=== PATIENT | male | born 1995 | race Caucasian/White ===

== ENCOUNTER → 2017-04-21 | Day surgery (SDC) | payer OTHER ==
[~2017-04-21] VITALS: Ht 188 cm; Wt 93.9 kg
[~2017-04-21] MED LIST: CEPH-459 PO; CHLO200T5 PO; CHLORHEXIDINE GLUCONATE 2 % 1 PACK (2 CLOTHS) TOPICAL PRN; CLIN1CAP6 PO; CLON2TAB PO; DAKI0.12 TOPICAL; FENO48TA PO; INSULIN HUMAN REGULAR 1,000 UNITS/10 ML VIAL SQ PRN; INTU4TAB PO; LACTATED RINGER'S 1000 ML IV PRN; LEVEMIR SQ; METOPROLOL TARTRATE 25 MG TAB PO PRN; NYST10007 TOPICAL; PERC5TAB12 PO; POVIDONE IODINE 5% (ANTISEPSIS KIT) 4 APPLICATIONS EACH NARE PRN; PROP40TA3 PO; SAPH10SU3 SL; SODIUM CHLORID 0.9% 500 ML IV PRN; SODIUM CHLORIDE 0.9% INJ 100 ML ONE; ceFAZolin 1,000 MG/NS 100 ML IV SCH; ceFAZolin INJ 1,000 MG VIAL ONE
[2017-04-21 10:41] LABS: AUTOMATED NEUTROPHIL # 3.4 TH/MM3 (1.8-7.7); BASOPHIL % 0.4 % (0.0-2.0); HEMATOCRIT 41.2 % (39.0-51.0); HEMO FLAGS DIFF FINAL; LYMPHOCYTE # 1.5 TH/MM3 (1.0-4.8); MEAN CELL VOLUME 79.3 FL (80.0-100.0); MEAN CORPUSCULAR HEMOGLOBIN 27.7 PG (27.0-34.0); MEAN CORPUSCULAR HGB CONC 34.9 % (32.0-36.0); MONO % 6.7 % (0.0-8.0); NEUT % 63.9 % (16.0-70.0); PLATELET COUNT 253 TH/MM3 (150-450); RED BLOOD COUNT 5.19 MIL/MM3 (4.50-5.90); RED CELL DISTRIBUTION WIDTH 14.6 % (11.6-17.2); WHITE BLOOD COUNT 5.3 TH/MM3 (4.0-11.0)
[2017-04-21 14:05] VITALS: BP 156/90; PULSE 89; RESP 20; TEMP 98.1; O2SAT 98
== END | disposition home or self-care (01) ==
LOC: HSDC 09:08
PROVIDERS: ATTEND Urology
DX: R30.0 Dysuria (principal); Z53.9 Procedure and treatment not carried out, unspecified reason
CPT/HCPCS: 85025; 99211; J0690; J7120; G0463

== ENCOUNTER 2017-05-19 15:04 | Inpatient (IN) | payer OTHER ==
[~2017-05-19] VITALS: Ht 188 cm; Wt 98.1 kg
[~2017-05-19 15:04] MED LIST changes: -CEPH-459 PO; -CHLORHEXIDINE GLUCONATE 2 % 1 PACK (2 CLOTHS) TOPICAL PRN; -CLIN1CAP6 PO; -DAKI0.12 TOPICAL; -FENO48TA PO; -INSULIN HUMAN REGULAR 1,000 UNITS/10 ML VIAL SQ PRN; -LACTATED RINGER'S 1000 ML IV PRN; -METOPROLOL TARTRATE 25 MG TAB PO PRN; -NYST10007 TOPICAL; -PERC5TAB12 PO; -POVIDONE IODINE 5% (ANTISEPSIS KIT) 4 APPLICATIONS EACH NARE PRN; -SODIUM CHLORID 0.9% 500 ML IV PRN; -SODIUM CHLORIDE 0.9% INJ 100 ML ONE; -ceFAZolin 1,000 MG/NS 100 ML IV SCH; -ceFAZolin INJ 1,000 MG VIAL ONE
[2017-05-19 15:11] VITALS: BP 106/77; PULSE 86; RESP 13; TEMP 98.3; O2SAT 100
[2017-05-19] MEDS ORDERED: SODIUM CHLOR 0.9% 1000 ML INJ 1,000 ML IV SCH ×2 (15:42)
[2017-05-19] MEDS ORDERED: LORazepam 2 MG/ML VIAL IV PUSH ONE (15:45)
[2017-05-19] MEDS ORDERED: LIDOCAINE HCL 1% 50 ML VIAL INFIL ONE (15:45)
[2017-05-19] MEDS ORDERED: VANCOMYCIN INJ 1,000 MG in SODIUM CHLOR 0.9% 250 ML INJ 250 ML IV ONE (15:45)
[2017-05-19] MEDS ORDERED: MORPHINE SULFATE 4 MG/ML INJ IV PUSH ONE (15:45)
--- NOTE | 2017-05-19 15:49 | PD ---
HPI Chief Complaint: Skin Problem Time Seen by Provider: 15:35 Travel History International Travel<30 days: No Contact w/Intl Traveler<30days: No Traveled to known affect area: No History of Present Illness HPI This is a 21-year-old male with history of autism, diabetes, presents with parents for evaluation of right arm infection. The mother reports that she noticed a small bump just distal to his right elbow about one week ago. Since yesterday he has had significant progression of erythema and soft tissue swelling to the right forearm which is painful. Initially they went to an urgent care center with [facility] for further evaluation. He has had no fevers at home. He has had no change in mentation or diet. His primary care physician is Dr. Jose Bautista. No other complaints at this time. [facility] Past Medical History ADHD: Yes Cancer: No Cardiovascular Problems: No Developmental Delay: Yes Diabetes: Yes (INSULIN DEPENDANT) Diminished Hearing: No Endocrine: Yes Genitourinary: No Hepatitis: No Musculoskeletal: No Neurologic: Yes (AUTISTIC AND NON-VERBAL) Psychiatric: No Reproductive: No Respiratory: No Immunizations Current: Yes Past Surgical History Pacemaker: No Social History Alcohol Use: No Tobacco Use: No Substance Use: No Allergies-Medications (Allergen,Severity, Reaction): Coded Allergies: No Known Drug Allergies (Verified Allergy, Unknown, 05/19/17) *MDRO Multi-Drug Resistant Organism (Verified Adverse Reaction, Unknown, ) 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) Reported Meds & Prescriptions Reported Meds & Active Scripts Active Chlorpromazine (Chlorpromazine HCl) 200 Mg Tab 200 Mg PO 2 TID Propranolol (Propranolol HCl) 40 Mg Tab 40 Mg PO BID Intuniv (Guanfacine ER) 4 Mg Claude 4 Mg PO BID Saphris (Asenapine) 10 Mg Subl 10 Mg SL BID Clonazepam 2 Mg Tab 2 Mg PO BID Reported Levemir Inj (Insulin Detemir) 1,000 unit/ 10 ML Vial 6 Units SQ DAILY Do not mix with any other Insulin. Review of Systems ROS Limitations: Poor Historian Except as stated in HPI: all other systems reviewed are Neg Physical Exam Exam Limitations: Poor Historian Narrative GENERAL: Well-developed well-nourished male who is in no acute distress. SKIN: Warm and dry. There is a large area of induration and erythema to the right forearm. There is a 2 cm fluctuant abscess just distal to the right elbow. Tender to palpation. No axillary lymphadenopathy. HEAD: Atraumatic. Normocephalic. EYES: Pupils equal and round. No scleral icterus. No injection or drainage. ENT: No nasal bleeding or discharge. Mucous membranes pink and moist. NECK: Trachea midline. No JVD. CARDIOVASCULAR: Regular rate and rhythm. No murmur appreciated. RESPIRATORY: No accessory muscle use. Clear to auscultation. Breath sounds equal bilaterally. GASTROINTESTINAL: Abdomen soft, non-tender, nondistended. Hepatic and splenic margins not palpable. MUSCULOSKELETAL: Skin as noted above. NEUROLOGICAL: Awake and alert. No obvious cranial nerve deficits. Data Data Last Documented VS Vital Signs Date Time Temp Pulse Resp B/P (MAP) Pulse Ox O2 Delivery O2 Flow Rate FiO2 05/19/17 17:03 100 Nasal Cannula 05/19/17 17:03 2.00 05/19/17 15:11 98.3 86 13 Orders Orders Lidocaine 1% Inj (50 Ml) (Xylocaine 1% I (05/19/17 15:45) Morphine Inj (Morphine Inj) (05/19/17 15:45) Lorazepam Inj (Ativan Inj) (05/19/17 15:45) Vancomycin Inj (Vancomycin Inj) (05/19/17 15:45) Sodium Chlor 0.9% 1000 Ml Inj (Ns 1000 M (05/19/17 15:42) Sodium Chlor 0.9% 1000 Ml Inj (Ns 1000 M (05/19/17 15:42) Complete Blood Count With Diff (05/19/17 15:42) Comprehensive Metabolic Panel (05/19/17 15:42) Prothrombin Time / Inr (Pt) (05/19/17 15:42) Act Partial Throm Time (Ptt) (05/19/17 15:42) Lactic Acid Sepsis Protocol (05/19/17 15:42) Blood Culture (05/19/17 15:42) Wound Culture And Gram Stain (05/19/17 15:42) Ecg Monitoring (05/19/17 15:42) Iv Access Insert/Monitor (05/19/17 15:42) Oximetry (05/19/17 15:42) Oxygen Administration (05/19/17 15:42) Propofol 200 Mg/20 Ml Inj (Diprivan 200 (05/19/17 16:15) Piperacil-Tazo 3.375 Gm Premix (Zosyn 3. (05/19/17 17:00) Admit Order (Ed Use Only) (05/19/17 17:11) Labs Laboratory Tests Test 05/19/17 15:55 White Blood Count 11.3 TH/MM3 Red Blood Count 4.45 MIL/MM3 Hemoglobin 12.0 GM/DL Hematocrit 35.1 % Mean Corpuscular Volume 78.9 FL Mean Corpuscular Hemoglobin 27.0 PG Mean Corpuscular Hemoglobin Concent 34.3 % Red Cell Distribution Width 14.1 % Platelet Count 367 TH/MM3 Mean Platelet Volume 7.1 FL Neutrophils (%) (Auto) 73.9 % Lymphocytes (%) (Auto) 17.2 % Monocytes (%) (Auto) 8.6 % Eosinophils (%) (Auto) 0.0 % Basophils (%) (Auto) 0.3 % Neutrophils # (Auto) 8.4 TH/MM3 Lymphocytes # (Auto) 2.0 TH/MM3 Monocytes # (Auto) 1.0 TH/MM3 Eosinophils # (Auto) 0.0 TH/MM3 Basophils # (Auto) 0.0 TH/MM3 CBC Comment DIFF FINAL Differential Comment Prothrombin Time 12.5 SEC Prothromb Time International Ratio 1.1 RATIO Activated Partial Thromboplast Time 50.0 SEC Blood Urea Nitrogen 13 MG/DL Creatinine 0.87 MG/DL Random Glucose 222 MG/DL Total Protein 8.3 GM/DL Albumin 3.0 GM/DL Calcium Level 8.8 MG/DL Alkaline Phosphatase 85 U/L Aspartate Amino Transf (AST/SGOT) 8 U/L Alanine Aminotransferase (ALT/SGPT) 18 U/L Total Bilirubin 0.5 MG/DL Sodium Level 134 MEQ/L Potassium Level 3.9 MEQ/L Chloride Level 101 MEQ/L Carbon Dioxide Level 25.0 MEQ/L Anion Gap 8 MEQ/L Estimat Glomerular Filtration Rate 113 ML/MIN Lactic Acid Level 1.1 mmol/L MDM Medical Decision Making Medical Screen Exam Complete: Yes Emergency Medical Condition: Yes Medical Record Reviewed: Yes Differential Diagnosis Cellulitis, abscess, necrotizing fasciitis, erysipelas, septic bursitis, septic arthritis, osteomyelitis Narrative Course Examination is consistent with cellulitis and abscess to the right forearm. Patient will be given IV vancomycin, Zosyn, 2 L of IV fluids. Basic lab work has been ordered. Incision and drainage of right forearm abscess will be performed, the parents verbally consent. Prior to procedure, the patient will be given morphine and Ativan. The decision was made to provide the patient with procedural sedation for abscess procedure. Wound cultures were performed. Laboratory has been reviewed and they're BBC count is 11.3 with 73.9% neutrophils, glucose is 222. At this point in time, given the rapid progression of the patient's infection, the plan will be to admit him for IV antibiotics which the parents are agreeable with. Discussed with Dr. Heredia who is agreeable with full admission. Procedures Procedure Narrative INCISION AND DRAINAGE OF ABSCESS: The area was prepped and was sterilely draped. A subcutaneous wheal of 1% Xylocaine with a total number 10 mL was used to anesthetize the area. The area was properly anesthetized. A number 11 scalpel was used to make a 1.5 -cm incision across the area of the abscess. Cultures were obtained. The abscess was drained an irrigated with normal saline. Diagnosis Primary Impression: Cellulitis of right forearm Additional Impression: Abscess of right forearm Admitting Information Admitting Physician Requests: Admit James Knott May 19, 2017 15:49
[2017-05-19 16:12] LABS: AUTOMATED NEUTROPHIL # 8.4 TH/MM3 (1.8-7.7); BASOPHIL % 0.3 % (0.0-2.0); HEMATOCRIT 35.1 % (39.0-51.0); HEMO FLAGS DIFF FINAL; LYMPH % 17.2 % (9.0-44.0); MEAN CELL VOLUME 78.9 FL (80.0-100.0); MEAN CORPUSCULAR HGB CONC 34.3 % (32.0-36.0); MONO % 8.6 % (0.0-8.0); NEUT % 73.9 % (16.0-70.0); PLATELET COUNT 367 TH/MM3 (150-450); RED BLOOD COUNT 4.45 MIL/MM3 (4.50-5.90); RED CELL DISTRIBUTION WIDTH 14.1 % (11.6-17.2); WHITE BLOOD COUNT 11.3 TH/MM3 (4.0-11.0)
[2017-05-19] MEDS ORDERED: PROPOFOL 200 MG/20 ML AMP IV ONE (16:15)
[2017-05-19 16:20] VITALS: O2SAT 99
[2017-05-19 16:27] LABS: INTERNATIONAL NORMALIZED RATIO 1.1 RATIO; PROTHROMBIN TIME - PATIENT 12.5 SEC (9.8-11.6)
--- NOTE | 2017-05-19 16:33 | PD ---
Physical Exam Date Seen by Provider: May 19, 2017 Narrative This is an autistic patient who presents with cellulitis of the right upper extremity. He had an associated abscess which needed to be drained. Data Data Last Documented VS Vital Signs Date Time Temp Pulse Resp B/P (MAP) Pulse Ox O2 Delivery O2 Flow Rate FiO2 05/19/17 15:11 98.3 86 13 106/77 (87) 100 Orders Orders Lidocaine 1% Inj (50 Ml) (Xylocaine 1% I (05/19/17 15:45) Morphine Inj (Morphine Inj) (05/19/17 15:45) Lorazepam Inj (Ativan Inj) (05/19/17 15:45) Vancomycin Inj (Vancomycin Inj) (05/19/17 15:45) Sodium Chlor 0.9% 1000 Ml Inj (Ns 1000 M (05/19/17 15:42) Sodium Chlor 0.9% 1000 Ml Inj (Ns 1000 M (05/19/17 15:42) Complete Blood Count With Diff (05/19/17 15:42) Comprehensive Metabolic Panel (05/19/17 15:42) Prothrombin Time / Inr (Pt) (05/19/17 15:42) Act Partial Throm Time (Ptt) (05/19/17 15:42) Lactic Acid Sepsis Protocol (05/19/17 15:42) Blood Culture (05/19/17 15:42) Wound Culture And Gram Stain (05/19/17 15:42) Ecg Monitoring (05/19/17 15:42) Iv Access Insert/Monitor (05/19/17 15:42) Oximetry (05/19/17 15:42) Oxygen Administration (05/19/17 15:42) Propofol 200 Mg/20 Ml Inj (Diprivan 200 (05/19/17 16:15) Labs Laboratory Tests Test 05/19/17 15:55 White Blood Count 11.3 TH/MM3 Red Blood Count 4.45 MIL/MM3 Hemoglobin 12.0 GM/DL Hematocrit 35.1 % Mean Corpuscular Volume 78.9 FL Mean Corpuscular Hemoglobin 27.0 PG Mean Corpuscular Hemoglobin Concent 34.3 % Red Cell Distribution Width 14.1 % Platelet Count 367 TH/MM3 Mean Platelet Volume 7.1 FL Neutrophils (%) (Auto) 73.9 % Lymphocytes (%) (Auto) 17.2 % Monocytes (%) (Auto) 8.6 % Eosinophils (%) (Auto) 0.0 % Basophils (%) (Auto) 0.3 % Neutrophils # (Auto) 8.4 TH/MM3 Lymphocytes # (Auto) 2.0 TH/MM3 Monocytes # (Auto) 1.0 TH/MM3 Eosinophils # (Auto) 0.0 TH/MM3 Basophils # (Auto) 0.0 TH/MM3 CBC Comment DIFF FINAL Differential Comment Prothrombin Time 12.5 SEC Prothromb Time International Ratio 1.1 RATIO Activated Partial Thromboplast Time 50.0 SEC MDM Supervised Visit with ANDRE: Yes Differential Diagnosis My differential diagnosis includes but is not limited to localized wound infection, cellulitis, abscess Narrative Course I, Dr. Ayala, have reviewed the advance practice practitioner's documentation and am in agreement, met with the patient face to face, made the diagnosis, and the medical decision making was done by me. *My assessment and Findings: This patient has pretty impressive cellulitis of the right upper extremity with an associated abscess near the elbow. Procedures Procedure Narrative After the risks and benefits were discussed the following procedure was performed: MODERATE SEDATION: The patient was placed on a director of cardiac cath lab and pulse oximetry. An ambu bag and suction was immediately available at bedside. The patient was monitored by the nurse and respiratory therapy. Oxygen saturation, heart rate and blood pressure were monitored. Procedural sedation was acheived using propofol. The patient was observed until awake and alert. Procedural Sedation time in attendance was 20 minutes. Brea Ayala MD May 19, 2017 16:33
[2017-05-19 16:34] LABS: ALT (GPT) 18 U/L (9-52); ANION GAP 8 MEQ/L (5-15); AST (GOT) 8 U/L (15-39); BLOOD UREA NITROGEN 13 MG/DL (7-18); CHLORIDE 101 MEQ/L (98-107); GLOMERULAR FILTRATION RATE 113 ML/MIN (>89); POTASSIUM 3.9 MEQ/L (3.5-5.1); SODIUM (NA) 134 MEQ/L (136-145)
[2017-05-19 16:36] LABS: ALKALINE PHOSPHATASE 85 U/L (45-117); TOTAL BILIRUBIN ADULT 0.5 MG/DL (0.2-1.0)
[2017-05-19] MEDS ORDERED: PIPERACIL-TAZO 3.375 GM PREMIX 50 ML IV ONE (17:00)
[2017-05-19 17:03] VITALS: O2SAT 100
[2017-05-19] MEDS: SODIUM CHLOR 0.9% 1000 ML INJ 1,000 ML IV SCH (17:18)
[2017-05-19] MEDS ORDERED: SENNOSIDES 8.6 MG TAB PO PRN (17:30)
[2017-05-19] MEDS ORDERED: BISACODYL 10 MG SUPP RECTAL PRN (17:30)
[2017-05-19] MEDS ORDERED: Vancomycin Consult Pharmacy 1 EA OTHER SCH (17:30)
[2017-05-19] MEDS ORDERED: NALOXONE HCL 0.4 MG/ML AMP IV PUSH PRN (17:30)
[2017-05-19] MEDS ORDERED: ACETAMINOPHEN 325 MG TAB PO PRN (17:30)
[2017-05-19] MEDS ORDERED: LACTULOSE SYRUP 20 GM/30 ML CUP PO PRN (17:30)
[2017-05-19] MEDS ORDERED: ONDANSETRON HCL 4 MG/2 ML VIAL IVP PRN (17:30)
[2017-05-19] MEDS ORDERED: MAGNESIUM HYDROXIDE SUSP 30 ML CUP PO PRN (17:30)
[2017-05-19] MEDS ORDERED: SODIUM CHLORIDE 0.9% FLUSH 10 ML FLUSH IV FLUSH PRN (17:30)
[2017-05-19 17:52] VITALS: BP 134/84; PULSE 82; RESP 16; O2SAT 98
[2017-05-19] MEDS ORDERED: FENO48TA PO (19:18)
--- NOTE | 2017-05-19 20:29 | HHI.HP ---
[facility] Jose Bautista MD Admission Diagnosis cellulitis, abscess right forearm Diagnoses: Travel History International Travel<30 Days: No Contact w/Intl Traveler <30 Da: No Traveled to Known Affected Are: No History of Present Illness Written by MARC Boone acting as scribe for [Ihsan] on 05/19/17 at 20: 16. 21 y/o male with a history of autism who is non verbal, ADHD, and DM was brought to the ED by his parents for a right elbow wound. Parents are at the bedside and able to answer all questions. Mom states a week ago she noticed he had a red spot on his elbow, and 2 days ago he had increase tenderness, swelling and redness. He was seen at urgent care today but they said he needed to go to the hospital. Mom states he did not have any other complaints but has had coughing and sneezing due allergies. No complaints of chest pain, or dysuria. He does have an excoriated groin area due to incontinence, he is awaiting for surgery for a suprapubic catheter by Dr. Durham. 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 Allergies: Coded Allergies: No Known Drug Allergies (Verified Allergy, Unknown, 05/19/17) *MDRO Multi-Drug Resistant Organism (Verified Adverse Reaction, Unknown, ) MDR-E.Coli (urine-11/29/16) Active Ordered Medications Current Medications Medications (Trade) Dose Ordered Sig/Arvin Route Start Time Stop Time Status Last Admin Pharmacy Profile Note 0 ml @ 0 mls/hr UNSCH OTHER 05/19/17 17:30 Piperacillin Sod/ Tazobactam Sod 50 ml @ 100 mls/hr Q6H IV 05/19/17 23:00 Sodium Chloride 1,000 ml @ 100 mls/hr Q10H IV 05/19/17 17:18 (NS Flush) 2 ml UNSCH PRN IV FLUSH 05/19/17 17:30 (NS Flush) 2 ml BID IV FLUSH 05/19/17 21:00 (Tylenol) 650 mg Q4H PRN PO 05/19/17 17:30 (Zofran Inj) 4 mg Q6H PRN IVP 05/19/17 17:30 (Narcan Inj) 0.4 mg UNSCH PRN IV PUSH 05/19/17 17:30 (Shilpa-Colace) 1 tab BID PO 05/19/17 21:00 (Milk Of Magnesia Liq) 30 ml Q12H PRN PO 05/19/17 17:30 (Senokot) 17.2 mg Q12H PRN PO 05/19/17 17:30 (Dulcolax Supp) 10 mg DAILY PRN RECTAL 05/19/17 17:30 (Lactulose Liq) 30 ml DAILY PRN PO 05/19/17 17:30 Family History Family history significant for cancer and DM. Social History Tobacco use: Denies Alcohol use: Denies Illicit drug use: Denies Physical Exam Vital Signs Vital Signs Date Time Temp Pulse Resp B/P (MAP) Pulse Ox O2 Delivery O2 Flow Rate FiO2 05/19/17 17:52 82 16 134/84 (101) 98 Room Air 05/19/17 17:03 100 Nasal Cannula 05/19/17 17:03 100 Nasal Cannula 2.00 05/19/17 16:20 99 Nasal Cannula 4.00 05/19/17 16:20 99 4.00 05/19/17 15:11 98.3 86 13 106/77 (87) 100 Physical Exam GENERAL: This is a well-nourished,non verbal patient with autism. SKIN: I & D to right elbow, draining sanguinous fluid. excoriated groin. HEAD: Atraumatic. Normocephalic. EYES: Pupils equal round and reactive. Extraocular motions intact. ENT: Nose without bleeding, purulent drainage or septal hematoma. Airway patent. NECK: Trachea midline. No JVD or lymphadenopathy. CARDIOVASCULAR: Regular rate and rhythm without murmurs, gallops, or rubs. RESPIRATORY: Clear to auscultation. Breath sounds equal bilaterally. No wheezes , rales, or rhonchi. GASTROINTESTINAL: Abdomen soft, non-tender, nondistended. MUSCULOSKELETAL: Extremities without clubbing, cyanosis, or edema. Right elbow tenderness. No calf tenderness. NEUROLOGICAL: Awake and alert. Motor and sensory grossly within normal limits. Normal speech. Laboratory Laboratory Tests Test 05/19/17 15:55 White Blood Count 11.3 Red Blood Count 4.45 Hemoglobin 12.0 Hematocrit 35.1 Mean Corpuscular Volume 78.9 Mean Corpuscular Hemoglobin 27.0 Mean Corpuscular Hemoglobin Concent 34.3 Red Cell Distribution Width 14.1 Platelet Count 367 Mean Platelet Volume 7.1 Neutrophils (%) (Auto) 73.9 Lymphocytes (%) (Auto) 17.2 Monocytes (%) (Auto) 8.6 Eosinophils (%) (Auto) 0.0 Basophils (%) (Auto) 0.3 Neutrophils # (Auto) 8.4 Lymphocytes # (Auto) 2.0 Monocytes # (Auto) 1.0 Eosinophils # (Auto) 0.0 Basophils # (Auto) 0.0 CBC Comment DIFF FINAL Differential Comment Prothrombin Time 12.5 Prothromb Time International Ratio 1.1 Activated Partial Thromboplast Time 50.0 Blood Urea Nitrogen 13 Creatinine 0.87 Random Glucose 222 Total Protein 8.3 Albumin 3.0 Calcium Level 8.8 Alkaline Phosphatase 85 Aspartate Amino Transf (AST/SGOT) 8 Alanine Aminotransferase (ALT/SGPT) 18 Total Bilirubin 0.5 Sodium Level 134 Potassium Level 3.9 Chloride Level 101 Carbon Dioxide Level 25.0 Anion Gap 8 Estimat Glomerular Filtration Rate 113 Lactic Acid Level 1.1 Date/Time Source Procedure Growth Status 05/19/17 16:05 Blood Peripheral Aerobic Blood Culture Pending Received 05/19/17 16:05 Blood Peripheral Anaerobic Blood Culture Pending Received 05/19/17 16:30 Wound Arm Gram Stain - Final Resulted 05/19/17 16:30 Wound Arm Wound Culture Pending Resulted Result Diagram: 05/19/17 1555 05/19/17 1555 Caprini VTE Risk Assessment Caprini VTE Risk Assessment: Mod/High Risk (score >= 2) Caprini Risk Assessment Model Point Value = 1 Point Value = 2 Point Value = 3 Point Value = 5 Age 41-60 Minor surgery BMI > 25 kg/m2 Swollen legs Varicose veins or History of unexplained or recurrent spontaneous Oral contraceptives or hormone replacement Sepsis (< 1 month) Serious lung disease, including pneumonia (< 1 month) Abnormal pulmonary function Acute myocardial infarction Congestive heart failure (< 1 month) History of inflammatory bowel disease Medical patient at bed rest Age 61-74 Arthroscopic surgery Major open surgery (> 45 min) Laparoscopic surgery (> 45 min) Malignancy Confined to bed (> 72 hours) Immobilizing plaster cast Central venous access Age >= 75 History of VTE Family history of VTE Factor V Leiden Prothrombin [id number] Lupus anticoagulant Anticardiolipin antibodies Elevated serum homocysteine Heparin-induced thrombocytopenia Other congenital or acquired thrombophilia Stroke (< 1 month) Elective arthroplasty Hip, pelvis, or leg fracture Acute spinal cord injury (< 1 month) Prophylaxis Regimen Total Risk Factor Score Risk Level Prophylaxis Regimen 0-1 Low Early ambulation 2 Moderate Order ONE of the following: *Sequential Compression Device (SCD) *Heparin 5000 units SQ BID 3-4 Higher Order ONE of the following medications: *Heparin 5000 units SQ TID *Enoxaparin/Lovenox 40 mg SQ daily (WT < 150 kg, CrCl > 30 mL/min) *Enoxaparin/Lovenox 30 mg SQ daily (WT < 150 kg, CrCl > 10-29 mL/min) *Enoxaparin/Lovenox 30 mg SQ BID (WT < 150 kg, CrCl > 30 mL/min) AND/OR *Sequential Compression Device (SCD) 5 or more Highest Order ONE of the following medications: *Heparin 5000 units SQ TID (Preferred with Epidurals) *Enoxaparin/Lovenox 40 mg SQ daily (WT < 150 kg, CrCl > 30 mL/min) *Enoxaparin/Lovenox 30 mg SQ daily (WT < 150 kg, CrCl > 10-29 mL/min) *Enoxaparin/Lovenox 30 mg SQ BID (WT < 150 kg, CrCl > 30 mL/min) AND *Sequential Compression Device (SCD) Assessment and Plan Problem List: (1) Cellulitis of right forearm ICD Code: L03.113 - Cellulitis of right upper limb Status: Acute (2) Autistic disorder ICD Code: F84.0 - Active autistic disorder Status: Chronic (3) Uncontrolled diabetes mellitus ICD Code: E11.65 - Type 2 diabetes mellitus with hyperglycemia Status: Acute Assessment and Plan 21 y/o male with a history of autism who is non verbal, ADHD, and DM was brought to the ED by his parents for right elbow wound. Cellulitis of right elbow with leukocytosis, wbc 11.3 I&D preformed in ED, 2L given in ED -IV antibiotics: Zosyn and vancomycin -Culture pending -Labs in AM -Consult wound care for wound management -Consult infectious disease Hyperglycemia, with a chronic history of diabetes, glucose 222, suspect due to infection -Accu checks AC/HS -Cont home Levemir Autistic disorder, chronic -Resume home medications -Parents are ok with Haldol or Ativan in case patient has behavior out burst DVT prophylaxis: SCDs This note was transcribed by [email or web address] [Marga Cristina]. I, Dr. Waldo Champagne personally performed the history, physical exam, and medical decision making; and confirmed the accuracy of the information in the transcribed note. Authenticated by Dr. Waldo Champagne on 05/19/17 at 20:16. Discussed Condition With Patient and patients parents Physician Certification 2 Midnight Certification Type: Admission for Inpatient Services Order for Inpatient Services The services are ordered in accordance with Medicare regulations or non- Medicare payer requirements, as applicable. In the case of services not specified as inpatient-only, they are appropriately provided as inpatient services in accordance with the 2-midnight benchmark. Estimated LOS (days): 2 days is the estimated time the patient will need to remain in the hospital, assuming treatment plan goals are met and no additional complications. Post-Hospital Plan: [place] Marga Cristina May 19, 2017 20:29 Waldo Champagne MD May 19, 2017 23:57
[2017-05-19] MEDS ORDERED: ASENAPINE 10 MG SL SCH (21:00)
[2017-05-19] MEDS ORDERED: DEXTROSE 50% IN WATER 50 ML VIAL(D50) IV PRN (21:00)
[2017-05-19] MEDS: clonazePAM 1 MG TAB PO SCH (21:00)
[2017-05-19] MEDS: SODIUM CHLORIDE 0.9% FLUSH 10 ML FLUSH IV FLUSH SCH (21:00)
[2017-05-19] MEDS ORDERED: guanFACINE HCL 1 MG E.R. TAB PO ONE (21:00)
[2017-05-19] MEDS ORDERED: clonazePAM 1 MG TAB PO ONE (21:00)
[2017-05-19] MEDS ORDERED: ASENAPINE SL SCH ×2 (21:00)
[2017-05-19] MEDS ORDERED: DOCUSATE SODIUM 50 MG/SENNA 8.6 MG TAB PO SCH (21:00)
[2017-05-19] MEDS ORDERED: PROPRANOLOL HCL 40 MG TAB PO ONE (21:00)
[2017-05-19] MEDS ORDERED: GLUCAGON 1 MG/ML VIAL OTHER PRN (21:00)
[2017-05-19] MEDS: INSULIN ASPART SUPPLEMENTAL SCALE SQ SCH (23:21)
[2017-05-19] MEDS: guanFACINE HCL 2 MG E.R. TAB PO SCH (23:22)
[2017-05-19] MEDS: PIPERACIL-TAZO 3.375 GM PREMIX 50 ML IV SCH (23:22)
[2017-05-19] MEDS: PROPRANOLOL HCL 40 MG TAB PO SCH (23:22)
[2017-05-20] VITALS: BP 133/73; PULSE 120; RESP 18; TEMP 97.4; O2SAT 98
[2017-05-20] MEDS ORDERED: VANCOMYCIN 1,500 MG/NS 500 ML IV SCH ×2 (01:00)
[2017-05-20] MEDS: SODIUM CHLOR 0.9% 1000 ML INJ 1,000 ML IV SCH ×3 (03:18→23:26)
[2017-05-20 04:00] VITALS: BP 121/65; PULSE 79; RESP 18; TEMP 97.4; O2SAT 97
[2017-05-20] MEDS: PIPERACIL-TAZO 3.375 GM PREMIX 50 ML IV SCH ×4 (05:00→23:26)
[2017-05-20 08:00] VITALS: BP 126/75; PULSE 71; RESP 20; TEMP 98.2; O2SAT 98
[2017-05-20] MEDS: INSULIN ASPART SUPPLEMENTAL SCALE SQ SCH ×4 (08:00→20:37)
[2017-05-20] MEDS: SODIUM CHLORIDE 0.9% FLUSH 10 ML FLUSH IV FLUSH SCH ×2 (09:00→20:38)
[2017-05-20] MEDS: guanFACINE HCL 2 MG E.R. TAB PO SCH ×2 (09:00→20:28)
[2017-05-20] MEDS ORDERED: INSULIN DETEMIR 100 UNITS/ML VIAL SQ SCH (09:00)
--- NOTE | 2017-05-20 09:21 | HHI.PR ---
Subjective Remarks This is a pleasant 21 y/o Male with Autism, who is non verbal, ADHD and DM II, who was brought in to ER with Right Elbow wound, A week ago she noticed he had a red spot on his elbow, and 2 days ago he had increase tenderness, swelling and redness. He was seen at urgent care today but they said he needed to go to the hospital. Mom states he did not have any other complaints but has had coughing and sneezing due allergies. No complaints of chest pain, or dysuria. He does have an excoriated groin area due to incontinence, he is awaiting for surgery for a suprapubic catheter by Dr. Durham. 05/20: Stable seen in his bedroom, discussed with his Father and nurse, no complaint started diet today ADA 1800 Cals, Objective Vital Signs Date Time Temp Pulse Resp B/P (MAP) Pulse Ox O2 Delivery O2 Flow Rate FiO2 05/20/17 08:00 98.2 71 20 126/75 (92) 98 05/20/17 04:00 97.4 79 18 121/65 (83) 97 05/20/17 00:00 97.4 120 18 133/73 (93) 98 05/19/17 17:52 82 16 134/84 (101) 98 Room Air 05/19/17 17:03 100 Nasal Cannula 05/19/17 17:03 100 Nasal Cannula 2.00 05/19/17 16:20 99 Nasal Cannula 4.00 05/19/17 16:20 99 4.00 05/19/17 15:11 98.3 86 13 106/77 (87) 100 I/O 05/19/17 05/19/17 05/19/17 05/20/17 05/20/17 05/20/17 07:00 15:00 23:00 07:00 15:00 23:00 Intake Total 1250 ml Balance 1250 ml Intake IV Total 1250 ml Result Diagram: 05/19/17 1555 05/19/17 1555 Imaging No Imaging studies. Procedures Left Elbow I and D. Other Results Laboratory Tests Test 05/19/17 15:55 White Blood Count 11.3 TH/MM3 Red Blood Count 4.45 MIL/MM3 Hemoglobin 12.0 GM/DL Hematocrit 35.1 % Mean Corpuscular Volume 78.9 FL Mean Corpuscular Hemoglobin 27.0 PG Mean Corpuscular Hemoglobin Concent 34.3 % Red Cell Distribution Width 14.1 % Platelet Count 367 TH/MM3 Mean Platelet Volume 7.1 FL Neutrophils (%) (Auto) 73.9 % Lymphocytes (%) (Auto) 17.2 % Monocytes (%) (Auto) 8.6 % Eosinophils (%) (Auto) 0.0 % Basophils (%) (Auto) 0.3 % Neutrophils # (Auto) 8.4 TH/MM3 Lymphocytes # (Auto) 2.0 TH/MM3 Monocytes # (Auto) 1.0 TH/MM3 Eosinophils # (Auto) 0.0 TH/MM3 Basophils # (Auto) 0.0 TH/MM3 CBC Comment DIFF FINAL Differential Comment Prothrombin Time 12.5 SEC Prothromb Time International Ratio 1.1 RATIO Activated Partial Thromboplast Time 50.0 SEC Blood Urea Nitrogen 13 MG/DL Creatinine 0.87 MG/DL Random Glucose 222 MG/DL Total Protein 8.3 GM/DL Albumin 3.0 GM/DL Calcium Level 8.8 MG/DL Alkaline Phosphatase 85 U/L Aspartate Amino Transf (AST/SGOT) 8 U/L Alanine Aminotransferase (ALT/SGPT) 18 U/L Total Bilirubin 0.5 MG/DL Sodium Level 134 MEQ/L Potassium Level 3.9 MEQ/L Chloride Level 101 MEQ/L Carbon Dioxide Level 25.0 MEQ/L Anion Gap 8 MEQ/L Estimat Glomerular Filtration Rate 113 ML/MIN Lactic Acid Level 1.1 mmol/L Objective Remarks GENERAL: This is a well-nourished,non verbal patient with autism. SKIN: I & D to right elbow, draining sanguinous fluid. excoriated groin. HEAD: Atraumatic. Normocephalic. EYES: Pupils equal round and reactive. Extraocular motions intact. ENT: Nose without bleeding, purulent drainage or septal hematoma. Airway patent. NECK: Trachea midline. No JVD or lymphadenopathy. CARDIOVASCULAR: Regular rate and rhythm without murmurs, gallops, or rubs. RESPIRATORY: Clear to auscultation. Breath sounds equal bilaterally. No wheezes , rales, or rhonchi. GASTROINTESTINAL: Abdomen soft, non-tender, nondistended. MUSCULOSKELETAL: Extremities without clubbing, cyanosis, or edema. Right elbow dressed. No calf tenderness. NEUROLOGICAL: Awake and alert. Motor and sensory grossly within normal limits. Normal speech. Medications and IVs Current Medications Medications (Trade) Dose Ordered Sig/Arvin Route Start Time Stop Time Status Last Admin Pharmacy Profile Note 0 ml @ 0 mls/hr UNSCH OTHER 05/19/17 17:30 Piperacillin Sod/ Tazobactam Sod 50 ml @ 100 mls/hr Q6H IV 05/19/17 23:00 05/19/17 23:22 Sodium Chloride 1,000 ml @ 100 mls/hr Q10H IV 05/19/17 17:18 05/19/17 17:18 (NS Flush) 2 ml UNSCH PRN IV FLUSH 05/19/17 17:30 (NS Flush) 2 ml BID IV FLUSH 05/19/17 21:00 (Tylenol) 650 mg Q4H PRN PO 05/19/17 17:30 (Narcan Inj) 0.4 mg UNSCH PRN IV PUSH 05/19/17 17:30 (Milk Of Magnesia Liq) 30 ml Q12H PRN PO 05/19/17 17:30 (Senokot) 17.2 mg Q12H PRN PO 05/19/17 17:30 (Lactulose Liq) 30 ml DAILY PRN PO 05/19/17 17:30 (KlonoPIN) 2 mg BID PO 05/19/17 21:00 05/19/17 21:00 (Tricor) 48 mg DAILY PO 05/20/17 09:00 (Intuniv Er) 4 mg BID PO 05/19/17 21:00 05/19/17 23:22 (Levemir Inj) 6 units DAILY SQ 05/20/17 09:00 (Inderal) 40 mg BID PO 05/19/17 21:00 05/19/17 23:22 (Thorazine) 400 mg TID PO 05/20/17 09:00 Patient Own Medication PT OWN MED: SAPHRIS(ASENAPINE) 10 MG SL BID BID SL 05/19/17 21:00 Future Hold (D50w (Vial) Inj) 50 ml UNSCH PRN IV 05/19/17 21:00 (Glucagon Inj) 1 mg UNSCH PRN OTHER 05/19/17 21:00 (NovoLOG SUPPLEMENTAL SCALE) 1 ACHS SLIDING SCALE SQ 05/19/17 21:00 05/19/17 23:21 Vancomycin HCl 1500 mg/Sodium Chloride 515 ml @ 257.5 mls/ hr Q8H IV 05/20/17 01:00 Miscellaneous Information SPECIFIC LAB TO BE DRAWN: ... ONCE ONCE .XX 05/20/17 16:45 05/20/17 16:46 A/P Assessment and Plan 21 y/o male with a history of autism who is non verbal, ADHD, and DM was brought to the ED by his parents for right elbow wound. Cellulitis of right elbow with leukocytosis, wbc 11.3 I&D preformed in ED, 2L given in ED -IV antibiotics: Zosyn and vancomycin -Culture pending, follow wound care management. Hyperglycemia, with a chronic history of diabetes, uncontrolled continue sliding scale and long lasting insulin. Autistic disorder, chronic -Resume home medications -Parents are ok with Haldol or Ativan in case patient has behavior out burst DVT prophylaxis: SCDs Discussed Condition With Patient, nurse and his Father, all questions answered to the best of my abilities. Discharge Planning Once cleared by Specialists. Gunner Mcdonough MD May 20, 2017 09:21
--- NOTE | 2017-05-20 10:04 | PD.CONS ---
History of Present Illness Service Infectious disease Consult Requested By Dr Maria Del Carmen Heredia Reason for Consult Evaluate patient with the right forearm cellulitis Primary Care Physician Jose Bautista MD Diagnoses: History of Present Illness Patient seen and examined. Records reviewed. History obtained from the patient 's parents Patient is a 21-year-old male with known history of autism, admitted to the hospital for further evaluation of acute onset of redness, swelling, and tenderness, all of his right elbow. Patient apparently was noted to have an area of what looks like some dryness on his elbow which the mom what was due to frequent rubbing on certain surfaces. Did not really pay a lot of attention to it since the patient was not complaining. On the day of admission, when the patient was being helped with his bathing, he was noted to have some pain in his right elbow. It then started developing more redness, and swelling, so the patient was taken to the hospital for further evaluation and treatment. He has not had any fever or chills or sweats. She has not really fallen or had any obvious injury to his elbow. He has not had any significant coughing but has been sneezing lately. There's been no nausea or vomiting. He has had problem with urinary incontinence, and has developed redness and excoriation in his groin area. He is being evaluated by urology for placement of a suprapubic catheter. He has not recently complained of any problem with urination. On presentation, he is afebrile. His WBC is mildly elevated. He was noted to have a follow up to 1 area in his right forearm just below the right elbow and IND was done in the emergency room. Infectious disease consultation has been requested to evaluate the patient. Review of Systems Constitutional: DENIES: Fever, Chills, Change in appetite Eyes: DENIES: Eye pain Ears, nose, mouth, throat: DENIES: Nasal discharge, Oral lesions, Throat pain, Ear Pain Respiratory: DENIES: Cough, Shortness of breath Cardiovascular: DENIES: Chest pain, Dyspnea on Exertion, Lower Extremity Edema Gastrointestinal: DENIES: Abdominal pain, Diarrhea, Nausea, Vomiting, Difficulty Swallowing Genitourinary: COMPLAINS OF: Urinary incontinence, DENIES: Dysuria Musculoskeletal: COMPLAINS OF: Joint pain, Joint Swelling, DENIES: Back pain Integumentary: COMPLAINS OF: Rash Neurologic: DENIES: Headache Past Family Social History Allergies: Coded Allergies: No Known Drug Allergies (Verified Allergy, Unknown, 05/19/17) *MDRO Multi-Drug Resistant Organism (Verified Adverse Reaction, Unknown, ) 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) Past Medical History Autism 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, 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 UTI Urinary incontinence Past Surgical History 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 Irrigation and debridement when he had his Nate's gangrene Active Ordered Medications Tylenol Thorazine Klonopin TriCor Insulin Intuniv Lactulose MOM Zosyn Inderal Senokot Vancomycin Family History noncontributory Social History Lives with parents No smoking, alcohol use or illicit drugs Physical Exam Vital Signs Vital Signs Date Time Temp Pulse Resp B/P (MAP) Pulse Ox O2 Delivery O2 Flow Rate FiO2 05/20/17 08:00 98.2 71 20 126/75 (92) 98 05/20/17 04:00 97.4 79 18 121/65 (83) 97 05/20/17 00:00 97.4 120 18 133/73 (93) 98 05/19/17 17:52 82 16 134/84 (101) 98 Room Air 05/19/17 17:03 100 Nasal Cannula 05/19/17 17:03 100 Nasal Cannula 2.00 05/19/17 16:20 99 Nasal Cannula 4.00 05/19/17 16:20 99 4.00 05/19/17 15:11 98.3 86 13 106/77 (87) 100 Physical Exam GENERAL: Patient is a well-nourished, well-developed male, awake and alert, not verbal, does interact, not in respiratory distress. SKIN: Warm and dry. No generalized rash, no ecchymoses and no evidence of embolic lesions. HEAD: Atraumatic. Normocephalic. No temporal wasting, or tenderness. EYES: [place] conjunctiva. No petechia or hemorrhage. Pupils equal, round and reactive to light. Extraocular movements full and intact. No scleral icterus. No injection or drainage. EARS, NOSE AND THROAT: Nose without bleeding or purulent nasal discharge. Mucous membranes pink and moist. No oral lesions noted. No exudate. No oral thrush. Poor dentition NECK: Trachea midline. Supple and not tender, no meningeal signs CARDIOVASCULAR: Regular rate and rhythm. No murmurs, rubs or gallops heard RESPIRATORY: Clear to auscultation. Breath sounds equal bilaterally. No rales , wheezing or rhonchi ABDOMEN: Soft, non-tender, nondistended. Bowel sounds present and normoactive. No guarding. No rebound. No organomegaly. There is candidal rash in groin area and medial thigh worse on left than on right EXTREMITIES: No clubbing, cyanosis, or edema in BLE. RUE - he has swelling and redness and induration below the forearm and there is a 1 cm incision that has copious purulent drainage coming out, area is tender, No joint effusion seen and he has good ROM. No calf tenderness. Well perfused and warm. NEUROLOGICAL: Awake and alert. Cranial nerves grossly intact. Motor grossly within normal limits. PSYCHIATRIC: Calm and cooperative. LINE: No evidence of infection Laboratory Laboratory Tests Test 05/19/17 15:55 White Blood Count 11.3 Red Blood Count 4.45 Hemoglobin 12.0 Hematocrit 35.1 Mean Corpuscular Volume 78.9 Mean Corpuscular Hemoglobin 27.0 Mean Corpuscular Hemoglobin Concent 34.3 Red Cell Distribution Width 14.1 Platelet Count 367 Mean Platelet Volume 7.1 Neutrophils (%) (Auto) 73.9 Lymphocytes (%) (Auto) 17.2 Monocytes (%) (Auto) 8.6 Eosinophils (%) (Auto) 0.0 Basophils (%) (Auto) 0.3 Neutrophils # (Auto) 8.4 Lymphocytes # (Auto) 2.0 Monocytes # (Auto) 1.0 Eosinophils # (Auto) 0.0 Basophils # (Auto) 0.0 CBC Comment DIFF FINAL Differential Comment Prothrombin Time 12.5 Prothromb Time International Ratio 1.1 Activated Partial Thromboplast Time 50.0 Blood Urea Nitrogen 13 Creatinine 0.87 Random Glucose 222 Total Protein 8.3 Albumin 3.0 Calcium Level 8.8 Alkaline Phosphatase 85 Aspartate Amino Transf (AST/SGOT) 8 Alanine Aminotransferase (ALT/SGPT) 18 Total Bilirubin 0.5 Sodium Level 134 Potassium Level 3.9 Chloride Level 101 Carbon Dioxide Level 25.0 Anion Gap 8 Estimat Glomerular Filtration Rate 113 Lactic Acid Level 1.1 Date/Time Source Procedure Growth Status 05/19/17 16:05 Blood Peripheral Aerobic Blood Culture Pending Received 05/19/17 16:05 Blood Peripheral Anaerobic Blood Culture Pending Received 05/19/17 16:30 Wound Arm Gram Stain - Final Resulted 05/19/17 16:30 Wound Arm Wound Culture Pending Resulted Result Diagram: 05/19/17 1555 05/19/17 1555 Assessment and Plan Assessment and Plan IMPRESSION Cellulitis, abscess RUE, S/P I and D Mild intertriginous mallorie in groin Previous Hx Nate's gangrene Apr 2016 Hx UTI, has chronic incontinence RECOMMENDATION Follow C/S Continue current Abx Will be able to use oral Abx once C/S available Put antifungal powder to the groin area I will follow along with you Thank you for this consultation Discussed Condition With Explained plan to the parents Kaylynn Ch MD May 20, 2017 10:04
[2017-05-20] MEDS: clonazePAM 1 MG TAB PO SCH ×2 (10:21→20:28)
[2017-05-20] MEDS: FENOFIBRATE 48 MG TAB PO SCH (10:23)
[2017-05-20] MEDS: PROPRANOLOL HCL 40 MG TAB PO SCH ×2 (10:23→20:28)
[2017-05-20 10:59] LABS: ALKALINE PHOSPHATASE 84 U/L (45-117); ALT (GPT) 18 U/L (9-52); ANION GAP 10 MEQ/L (5-15); AST (GOT) 21 U/L (15-39); BICARBONATE 22.7 MEQ/L (21.0-32.0); BLOOD UREA NITROGEN 8 MG/DL (7-18); CHLORIDE 104 MEQ/L (98-107); GLOMERULAR FILTRATION RATE 153 ML/MIN (>89); POTASSIUM 4.2 MEQ/L (3.5-5.1); SODIUM (NA) 137 MEQ/L (136-145); TOTAL BILIRUBIN ADULT 0.5 MG/DL (0.2-1.0)
[2017-05-20 12:00] VITALS: BP 130/87; PULSE 81; RESP 20; TEMP 97.6; O2SAT 98
--- NOTE | 2017-05-20 14:09 | EKG ---
Date Performed: 05/19/2017 Time Performed: 21:01:42 PTAGE: 21 years EKG: SINUS TACHYCARDIA POSSIBLE LEFT ATRIAL ENLARGEMENT ST DEVIATION AND MODERATE T-WAVE ABNORMA LITY, CONSIDER ANTEROLATERAL ISCHEMIA ST DEVIATION AND MODERATE T-WAVE ABNORMALITY, CONSIDER INFERIOR ISCHEMIA ABNORMAL ECG Compared to prior tracing no significant change PREVIOUS TRACING : 06/24/2016 15.28 DOCTOR: Ruben Crow Interpretating Date/Time 05/20/2017 14:06:34
[2017-05-20 16:00] VITALS: BP 135/85; PULSE 78; RESP 20; TEMP 98; O2SAT 97
[2017-05-20 20:00] VITALS: BP 131/68; PULSE 78; RESP 18; TEMP 99.1; O2SAT 97
[2017-05-20] MEDS: VANCOMYCIN 1,500 MG/NS 500 ML IV SCH ×2 (20:28)
[2017-05-20] MEDS: NYSTATIN 100,000 U/GM PWD 15 GM BTL TOPICAL SCH (20:37)
[2017-05-21] VITALS: BP 142/88; PULSE 79; RESP 18; TEMP 98.7; O2SAT 94
[2017-05-21 04:38] VITALS: BP 131/80; PULSE 67; RESP 16; TEMP 97.7; O2SAT 96
[2017-05-21] MEDS: PIPERACIL-TAZO 3.375 GM PREMIX 50 ML IV SCH ×2 (04:43→10:04)
[2017-05-21] MEDS: VANCOMYCIN 1,500 MG/NS 500 ML IV SCH ×4 (04:43→22:25)
[2017-05-21 08:00] VITALS: BP 140/86; PULSE 76; RESP 18; TEMP 97.8; O2SAT 98
[2017-05-21] MEDS: INSULIN ASPART SUPPLEMENTAL SCALE SQ SCH ×4 (08:00→22:36)
--- NOTE | 2017-05-21 09:55 | HHI.PR ---
Subjective Remarks This is a pleasant 21 y/o Male with Autism, who is non verbal, ADHD and DM II, who was brought in to ER with Right Elbow wound, A week ago she noticed he had a red spot on his elbow, and 2 days ago he had increase tenderness, swelling and redness. He was seen at urgent care today but they said he needed to go to the hospital. Mom states he did not have any other complaints but has had coughing and sneezing due allergies. No complaints of chest pain, or dysuria. He does have an excoriated groin area due to incontinence, he is awaiting for surgery for a suprapubic catheter by Dr. Durham. 05/20: Stable seen in his bedroom, discussed with his Father and nurse, no complaint started diet today ADA 1800 Cals, 05/21: Seen in his bedroom no nausea, vomit or diarrhea, his Father present, eating well, as per ID specialist to continue present care with same antibiotics. Objective Vital Signs Date Time Temp Pulse Resp B/P (MAP) Pulse Ox O2 Delivery O2 Flow Rate FiO2 05/21/17 08:00 97.8 76 18 140/86 (104) 98 05/21/17 04:38 97.7 67 16 131/80 (97) 96 05/21/17 00:00 98.7 79 18 142/88 (106) 94 05/20/17 20:00 99.1 78 18 131/68 (89) 97 05/20/17 16:00 98.0 78 20 135/85 (102) 97 05/20/17 12:00 97.6 81 20 130/87 (101) 98 I/O 05/20/17 05/20/17 05/20/17 05/21/17 05/21/17 05/21/17 07:00 15:00 23:00 07:00 15:00 23:00 Intake Total 720 ml 1061 ml Output Total 1000 ml Balance 720 ml 61 ml Intake Oral 720 ml IV Total 1061 ml Output Urine Total 1000 ml # Voids 3 2 # Bowel Movements 1 Result Diagram: 05/19/17 1555 05/20/17 1015 Imaging No Imaging studies performed. Procedures Left Elbow I and D. Other Results Laboratory Tests Test 05/19/17 15:55 05/20/17 10:15 White Blood Count 11.3 TH/MM3 Red Blood Count 4.45 MIL/MM3 Hemoglobin 12.0 GM/DL Hematocrit 35.1 % Mean Corpuscular Volume 78.9 FL Mean Corpuscular Hemoglobin 27.0 PG Mean Corpuscular Hemoglobin Concent 34.3 % Red Cell Distribution Width 14.1 % Platelet Count 367 TH/MM3 Mean Platelet Volume 7.1 FL Neutrophils (%) (Auto) 73.9 % Lymphocytes (%) (Auto) 17.2 % Monocytes (%) (Auto) 8.6 % Eosinophils (%) (Auto) 0.0 % Basophils (%) (Auto) 0.3 % Neutrophils # (Auto) 8.4 TH/MM3 Lymphocytes # (Auto) 2.0 TH/MM3 Monocytes # (Auto) 1.0 TH/MM3 Eosinophils # (Auto) 0.0 TH/MM3 Basophils # (Auto) 0.0 TH/MM3 CBC Comment DIFF FINAL Differential Comment Prothrombin Time 12.5 SEC Prothromb Time International Ratio 1.1 RATIO Activated Partial Thromboplast Time 50.0 SEC Lactic Acid Level 1.1 mmol/L Blood Urea Nitrogen 8 MG/DL Creatinine 0.67 MG/DL Random Glucose 191 MG/DL Total Protein 7.9 GM/DL Albumin 2.8 GM/DL Calcium Level 8.7 MG/DL Alkaline Phosphatase 84 U/L Aspartate Amino Transf (AST/SGOT) 21 U/L Alanine Aminotransferase (ALT/SGPT) 18 U/L Total Bilirubin 0.5 MG/DL Sodium Level 137 MEQ/L Potassium Level 4.2 MEQ/L Chloride Level 104 MEQ/L Carbon Dioxide Level 22.7 MEQ/L Anion Gap 10 MEQ/L Estimat Glomerular Filtration Rate 153 ML/MIN Objective Remarks GENERAL: This is a well-nourished,non verbal patient with autism. SKIN: I & D to right elbow, draining sanguinous fluid. excoriated groin. HEAD: Atraumatic. Normocephalic. EYES: Pupils equal round and reactive. Extraocular motions intact. ENT: Nose without bleeding, purulent drainage or septal hematoma. Airway patent. NECK: Trachea midline. No JVD or lymphadenopathy. CARDIOVASCULAR: Regular rate and rhythm without murmurs, gallops, or rubs. RESPIRATORY: Clear to auscultation. Breath sounds equal bilaterally. No wheezes , rales, or rhonchi. GASTROINTESTINAL: Abdomen soft, non-tender, nondistended. MUSCULOSKELETAL: Extremities without clubbing, cyanosis, or edema. Right elbow dressed. No calf tenderness. NEUROLOGICAL: Awake and alert. Motor and sensory grossly within normal limits. Normal speech. Medications and IVs Current Medications Medications (Trade) Dose Ordered Sig/Arvin Route Start Time Stop Time Status Last Admin Pharmacy Profile Note 0 ml @ 0 mls/hr UNSCH OTHER 05/19/17 17:30 Piperacillin Sod/ Tazobactam Sod 50 ml @ 100 mls/hr Q6H IV 05/19/17 23:00 05/21/17 04:43 Sodium Chloride 1,000 ml @ 100 mls/hr Q10H IV 05/19/17 17:18 05/20/17 23:26 (NS Flush) 2 ml UNSCH PRN IV FLUSH 05/19/17 17:30 (NS Flush) 2 ml BID IV FLUSH 05/19/17 21:00 05/20/17 20:38 (Tylenol) 650 mg Q4H PRN PO 05/19/17 17:30 (Narcan Inj) 0.4 mg UNSCH PRN IV PUSH 05/19/17 17:30 (Milk Of Magnesia Liq) 30 ml Q12H PRN PO 05/19/17 17:30 (Senokot) 17.2 mg Q12H PRN PO 05/19/17 17:30 (Lactulose Liq) 30 ml DAILY PRN PO 05/19/17 17:30 (KlonoPIN) 2 mg BID PO 05/19/17 21:00 05/20/17 20:28 (Tricor) 48 mg DAILY PO 05/20/17 09:00 05/20/17 10:23 (Intuniv Er) 4 mg BID PO 05/19/17 21:00 05/20/17 20:28 (Inderal) 40 mg BID PO 05/19/17 21:00 05/20/17 20:28 (Thorazine) 400 mg TID PO 05/20/17 09:00 05/20/17 18:00 Patient Own Medication PT OWN MED: SAPHRIS(ASENAPINE) 10 MG SL BID BID SL 05/19/17 21:00 Future Hold (D50w (Vial) Inj) 50 ml UNSCH PRN IV 05/19/17 21:00 (Glucagon Inj) 1 mg UNSCH PRN OTHER 05/19/17 21:00 (NovoLOG SUPPLEMENTAL SCALE) 1 ACHS SLIDING SCALE SQ 05/19/17 21:00 05/20/17 17:00 Miscellaneous Information SPECIFIC LAB TO BE DRAWN:VANCOMY... ONCE ONCE .XX 05/21/17 12:45 05/21/17 12:46 (Mycostatin Powder) 1 applic Q12HR TOPICAL 05/20/17 10:15 05/20/17 20:37 Vancomycin HCl 1500 mg/Sodium Chloride 515 ml @ 257.5 mls/ hr Q8H IV 05/20/17 21:00 05/21/17 04:43 (Levemir Inj) 9 units DAILY SQ 05/21/17 09:00 A/P Assessment and Plan 21 y/o male with a history of autism who is non verbal, ADHD, and DM was brought to the ED by his parents for right elbow wound. Cellulitis of right elbow with leukocytosis, wbc 11.3, Wound Culture MRSA positive I&D preformed in ED, 2L given in ED -IV antibiotics: Zosyn and vancomycin DM II uncontrolled, Hemoglobin A1C, increased long lasting insulin to 9 units daily and continue sliding scale. Autistic disorder, chronic -Resume home medications -Parents are ok with Haldol or Ativan in case patient has behavior out burst DVT prophylaxis: SCDs Discussed Condition With Patient, nurse and his Father, all questions answered to the best of my abilities. Discharge Planning Once cleared by Specialists. Gunner Mcdonough MD May 21, 2017 09:55
[2017-05-21] MEDS: NYSTATIN 100,000 U/GM PWD 15 GM BTL TOPICAL SCH ×2 (10:07→22:37)
[2017-05-21] MEDS: FENOFIBRATE 48 MG TAB PO SCH (10:09)
[2017-05-21] MEDS: guanFACINE HCL 2 MG E.R. TAB PO SCH ×2 (10:10→22:23)
[2017-05-21] MEDS: PROPRANOLOL HCL 40 MG TAB PO SCH ×2 (10:10→22:23)
[2017-05-21] MEDS: clonazePAM 1 MG TAB PO SCH ×2 (10:11→22:23)
[2017-05-21] MEDS: INSULIN DETEMIR 100 UNITS/ML VIAL SQ SCH (10:13)
[2017-05-21 12:00] VITALS: BP 137/84; PULSE 89; RESP 18; TEMP 98.4; O2SAT 98
[2017-05-21] MEDS ORDERED: PHARMACY ORDERED LAB ONE (12:45)
--- NOTE | 2017-05-21 14:20 | PD.WCN.NOT ---
Wound Consult Description: Received consult for R elbow I&D wound management from [facility] Communicated with: LEANN Pavon montgomery and Call placed to Doctor Yan Recommendation: Please cleanse wound to R elbow with normal saline and pat dry. Pack wound with iodoform 1/4 inch packing strip,and cover with ABD pad. Secure dressing with rolled gauze and tape, Change dressing daily. Additional Information: Patient seen on for evaluation of R elbow wound with recent I&D. Removed rolled gauze and ABD pad in place to reveal wound. Wound measures 1cm x 0.3cm x ~3cm. Periwound is noted with edema and slight blanchable erythema. Wound drainage is minimal and yellow/ sero-sanguinous without odor. Expressed a minimal amount of thick yellow purulent drainage from wound. Tissue visible in wound bed is 100% pink. Cleansed wound with normal saline and packed wound with 1/4 inch Iodoform packing strip and covered with ABD pad. Secured dressing with rolled gauze and tape. [facility] May 21, 2017 14:20
--- NOTE | 2017-05-21 16:13 | HHI.IDPN ---
Subjective Subjective Remarks Patient is a 21-year-old male with known history of autism, admitted to the hospital for further evaluation of acute onset of redness, swelling, and tenderness, all of his right elbow. Patient apparently was noted to have an area of what looks like some dryness on his elbow which the mom what was due to frequent rubbing on certain surfaces. Did not really pay a lot of attention to it since the patient was not complaining. On the day of admission, when the patient was being helped with his bathing, he was noted to have some pain in his right elbow. It then started developing more redness, and swelling, so the patient was taken to the hospital for further evaluation and treatment. He has not had any fever or chills or sweats. She has not really fallen or had any obvious injury to his elbow. He has not had any significant coughing but has been sneezing lately. There's been no nausea or vomiting. He has had problem with urinary incontinence, and has developed redness and excoriation in his groin area. He is being evaluated by urology for placement of a suprapubic catheter. He has not recently complained of any problem with urination. On presentation, he is afebrile. His WBC is mildly elevated. He was noted to have a follow up to 1 area in his right forearm just below the right elbow and IND was done in the emergency room. Infectious disease consultation has been requested to evaluate the patient. 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 Vital Signs Date Time Temp Pulse Resp B/P (MAP) Pulse Ox O2 Delivery O2 Flow Rate FiO2 05/21/17 12:00 98.4 89 18 137/84 (101) 98 05/21/17 08:00 97.8 76 18 140/86 (104) 98 05/21/17 04:38 97.7 67 16 131/80 (97) 96 05/21/17 00:00 98.7 79 18 142/88 (106) 94 05/20/17 20:00 99.1 78 18 131/68 (89) 97 . Laboratory Tests Test 05/20/17 10:15 Blood Urea Nitrogen 8 MG/DL Creatinine 0.67 MG/DL Random Glucose 191 MG/DL Total Protein 7.9 GM/DL Albumin 2.8 GM/DL Calcium Level 8.7 MG/DL Alkaline Phosphatase 84 U/L Aspartate Amino Transf (AST/SGOT) 21 U/L Alanine Aminotransferase (ALT/SGPT) 18 U/L Total Bilirubin 0.5 MG/DL Sodium Level 137 MEQ/L Potassium Level 4.2 MEQ/L Chloride Level 104 MEQ/L Carbon Dioxide Level 22.7 MEQ/L Anion Gap 10 MEQ/L Estimat Glomerular Filtration Rate 153 ML/MIN Microbiology Date/Time Source Procedure Growth Status 05/19/17 16:05 Blood Peripheral Aerobic Blood Culture - Preliminary NO GROWTH IN 2 DAYS Resulted 05/19/17 16:05 Blood Peripheral Anaerobic Blood Culture - Preliminary NO GROWTH IN 2 DAYS Resulted 05/19/17 15:25 Blood Peripheral Aerobic Blood Culture - Preliminary NO GROWTH IN 2 DAYS Resulted 05/19/17 15:25 Blood Peripheral Anaerobic Blood Culture - Preliminary NO GROWTH IN 2 DAYS Resulted 05/19/17 16:30 Wound Arm Gram Stain - Final Complete 05/19/17 16:30 Wound Culture - Final S. Aureus Mrsa Complete Physical Exam GENERAL: awake and alert, not verbal, does interact, not in respiratory distress. SKIN: Warm and dry. No generalized rash, no ecchymoses and no evidence of embolic lesions. EYES: Apex conjunctiva. No petechia or hemorrhage. No scleral icterus. No injection or drainage. EARS, NOSE AND THROAT: Nose without bleeding or purulent nasal discharge. Mucous membranes pink and moist. No oral lesions noted. No exudate. No oral thrush. Poor dentition NECK: Trachea midline. Supple and not tender, no meningeal signs CARDIOVASCULAR: Regular rate and rhythm. No murmurs, rubs or gallops heard RESPIRATORY: Clear to auscultation. Breath sounds equal bilaterally. No rales , wheezing or rhonchi ABDOMEN: Soft, non-tender, nondistended. Bowel sounds present and normoactive. No guarding. No rebound. No organomegaly. There is candidal rash in groin area and medial thigh worse on left than on right EXTREMITIES: No clubbing, cyanosis, or edema in BLE. RUE - he has improving edema and induration, redness much improved, incision with iodoform packing, less drainage and purulence, good ROM at elbow joint. No calf tenderness. Well perfused and warm. NEUROLOGICAL: Awake and alert. Cranial nerves grossly intact. Motor grossly within normal limits. PSYCHIATRIC: Calm and cooperative. LINE: No evidence of infection Assessment & Plan Remarks IMPRESSION Cellulitis, abscess RUE, S/P I and D - C/S MRSA Mild intertriginous mallorie in groin Previous Hx Nate's gangrene Apr 2016 Hx UTI, has chronic incontinence RECOMMENDATION Continue Vancomycin Stop Zosyn If continues to improve, should be able to go home tomorrow on oral Abx: Clinda 300 TID x 10 days Will benefit from home health nurse to do wound packing of his wound Continue antifungal powder to the groin area Monitor progress Explained plan to the father Kaylynn Ch MD May 21, 2017 16:13
[2017-05-21 17:15] VITALS: BP 143/89; PULSE 78; RESP 16; TEMP 98.3; O2SAT 98
[2017-05-21] MEDS: SODIUM CHLOR 0.9% 1000 ML INJ 1,000 ML IV SCH (19:18)
[2017-05-21 20:00] VITALS: BP 143/83; PULSE 95; RESP 18; TEMP 98; O2SAT 96
[2017-05-21] MEDS: SODIUM CHLORIDE 0.9% FLUSH 10 ML FLUSH IV FLUSH SCH (22:38)
[2017-05-22 04:00] VITALS: BP 137/79; PULSE 64; RESP 18; TEMP 97.8; O2SAT 98
[2017-05-22] MEDS: VANCOMYCIN 1,500 MG/NS 500 ML IV SCH ×6 (04:53→21:52)
[2017-05-22] MEDS: SODIUM CHLOR 0.9% 1000 ML INJ 1,000 ML IV SCH ×2 (05:18→15:18)
[2017-05-22] MEDS: INSULIN ASPART SUPPLEMENTAL SCALE SQ SCH ×4 (08:00→21:00)
[2017-05-22] MEDS: INSULIN DETEMIR 100 UNITS/ML VIAL SQ SCH (09:00)
[2017-05-22] MEDS: SODIUM CHLORIDE 0.9% FLUSH 10 ML FLUSH IV FLUSH SCH ×2 (09:00→21:00)
[2017-05-22 09:14] VITALS: BP 151/95; PULSE 64; RESP 17; TEMP 98.5; O2SAT 98
[2017-05-22] MEDS: clonazePAM 1 MG TAB PO SCH ×2 (09:23→21:44)
[2017-05-22] MEDS: guanFACINE HCL 2 MG E.R. TAB PO SCH ×2 (09:23→21:44)
[2017-05-22] MEDS: PROPRANOLOL HCL 40 MG TAB PO SCH ×2 (09:23→21:44)
[2017-05-22] MEDS: FENOFIBRATE 48 MG TAB PO SCH (09:23)
[2017-05-22] MEDS: NYSTATIN 100,000 U/GM PWD 15 GM BTL TOPICAL SCH (09:24)
[2017-05-22] MEDS ORDERED: CLIN1CAP6 PO (10:34)
[2017-05-22] MEDS ORDERED: NYST10007 TOPICAL (10:37)
--- NOTE | 2017-05-22 11:07 | HHI.PR ---
Subjective Remarks This is a pleasant 21 y/o Male with Autism, who is non verbal, ADHD and DM II, who was brought in to ER with Right Elbow wound, A week ago she noticed he had a red spot on his elbow, and 2 days ago he had increase tenderness, swelling and redness. He was seen at urgent care today but they said he needed to go to the hospital. Mom states he did not have any other complaints but has had coughing and sneezing due allergies. No complaints of chest pain, or dysuria. He does have an excoriated groin area due to incontinence, he is awaiting for surgery for a suprapubic catheter by Dr. uDrham. 05/20: Stable seen in his bedroom, discussed with his Father and nurse, no complaint started diet today ADA 1800 Cals, 05/21: his Father present, eating well, as per ID specialist to continue present care with same antibiotics. 05/22: Stable in his bedroom, seen in the presence of his Father, okay to discharge as per ID specialist will go home on [facility] for Wound care continue packing and continue Clindamycin 300 mg TID for 10 days. No nausea, vomit or diarrhea. Objective Vital Signs Date Time Temp Pulse Resp B/P (MAP) Pulse Ox O2 Delivery O2 Flow Rate FiO2 05/22/17 09:14 98.5 64 17 151/95 (113) 98 05/22/17 04:00 97.8 64 18 137/79 (98) 98 05/21/17 20:00 98.0 95 18 143/83 (103) 96 05/21/17 17:15 98.3 78 16 143/89 (107) 98 05/21/17 12:00 98.4 89 18 137/84 (101) 98 I/O 05/21/17 05/21/17 05/21/17 05/22/17 05/22/17 05/22/17 07:00 15:00 23:00 07:00 15:00 23:00 Intake Total 1061 ml 515 ml Output Total 1000 ml Balance 61 ml 515 ml IV Total 1061 ml 515 ml Output Urine Total 1000 ml # Voids 2 3 Result Diagram: 05/19/17 1555 05/20/17 1015 Imaging No Imaging studies. Procedures Left Elbow I and D. Other Results Laboratory Tests Test 05/19/17 15:55 05/20/17 10:15 05/21/17 12:56 White Blood Count 11.3 TH/MM3 Red Blood Count 4.45 MIL/MM3 Hemoglobin 12.0 GM/DL Hematocrit 35.1 % Mean Corpuscular Volume 78.9 FL Mean Corpuscular Hemoglobin 27.0 PG Mean Corpuscular Hemoglobin Concent 34.3 % Red Cell Distribution Width 14.1 % Platelet Count 367 TH/MM3 Mean Platelet Volume 7.1 FL Neutrophils (%) (Auto) 73.9 % Lymphocytes (%) (Auto) 17.2 % Monocytes (%) (Auto) 8.6 % Eosinophils (%) (Auto) 0.0 % Basophils (%) (Auto) 0.3 % Neutrophils # (Auto) 8.4 TH/MM3 Lymphocytes # (Auto) 2.0 TH/MM3 Monocytes # (Auto) 1.0 TH/MM3 Eosinophils # (Auto) 0.0 TH/MM3 Basophils # (Auto) 0.0 TH/MM3 CBC Comment DIFF FINAL Differential Comment Prothrombin Time 12.5 SEC Prothromb Time International Ratio 1.1 RATIO Activated Partial Thromboplast Time 50.0 SEC Lactic Acid Level 1.1 mmol/L Blood Urea Nitrogen 8 MG/DL Creatinine 0.67 MG/DL Random Glucose 191 MG/DL Total Protein 7.9 GM/DL Albumin 2.8 GM/DL Calcium Level 8.7 MG/DL Alkaline Phosphatase 84 U/L Aspartate Amino Transf (AST/SGOT) 21 U/L Alanine Aminotransferase (ALT/SGPT) 18 U/L Total Bilirubin 0.5 MG/DL Sodium Level 137 MEQ/L Potassium Level 4.2 MEQ/L Chloride Level 104 MEQ/L Carbon Dioxide Level 22.7 MEQ/L Anion Gap 10 MEQ/L Estimat Glomerular Filtration Rate 153 ML/MIN Vancomycin Level Trough 10.3 MCG/ML Objective Remarks GENERAL: This is a well-nourished,non verbal patient with autism. SKIN: I & D to right elbow, draining sanguinous fluid. excoriated groin. HEAD: Atraumatic. Normocephalic. EYES: Pupils equal round and reactive. Extraocular motions intact. ENT: Nose without bleeding, purulent drainage or septal hematoma. Airway patent. NECK: Trachea midline. No JVD or lymphadenopathy. CARDIOVASCULAR: Regular rate and rhythm without murmurs, gallops, or rubs. RESPIRATORY: Clear to auscultation. Breath sounds equal bilaterally. No wheezes , rales, or rhonchi. GASTROINTESTINAL: Abdomen soft, non-tender, nondistended. MUSCULOSKELETAL: Extremities without clubbing, cyanosis, or edema. Right elbow dressed. No calf tenderness. NEUROLOGICAL: Awake and alert. Motor and sensory grossly within normal limits. Normal speech. Medications and IVs Current Medications Medications (Trade) Dose Ordered Sig/Arvin Route Start Time Stop Time Status Last Admin Pharmacy Profile Note 0 ml @ 0 mls/hr UNSCH OTHER 05/19/17 17:30 Sodium Chloride 1,000 ml @ 100 mls/hr Q10H IV 05/19/17 17:18 05/20/17 23:26 (NS Flush) 2 ml UNSCH PRN IV FLUSH 05/19/17 17:30 (NS Flush) 2 ml BID IV FLUSH 05/19/17 21:00 05/22/17 09:00 (Tylenol) 650 mg Q4H PRN PO 05/19/17 17:30 (Narcan Inj) 0.4 mg UNSCH PRN IV PUSH 05/19/17 17:30 (Milk Of Magnesia Liq) 30 ml Q12H PRN PO 05/19/17 17:30 (Senokot) 17.2 mg Q12H PRN PO 05/19/17 17:30 (Lactulose Liq) 30 ml DAILY PRN PO 05/19/17 17:30 (KlonoPIN) 2 mg BID PO 05/19/17 21:00 05/22/17 09:23 (Tricor) 48 mg DAILY PO 05/20/17 09:00 05/22/17 09:23 (Intuniv Er) 4 mg BID PO 05/19/17 21:00 05/22/17 09:23 (Inderal) 40 mg BID PO 05/19/17 21:00 05/22/17 09:23 (Thorazine) 400 mg TID PO 05/20/17 09:00 05/22/17 09:23 Patient Own Medication PT OWN MED: SAPHRIS(ASENAPINE) 10 MG SL BID BID SL 05/19/17 21:00 Future Hold (D50w (Vial) Inj) 50 ml UNSCH PRN IV 05/19/17 21:00 (Glucagon Inj) 1 mg UNSCH PRN OTHER 05/19/17 21:00 (NovoLOG SUPPLEMENTAL SCALE) 1 ACHS SLIDING SCALE SQ 05/19/17 21:00 05/22/17 08:00 (Mycostatin Powder) 1 applic Q12HR TOPICAL 05/20/17 10:15 05/22/17 09:24 Vancomycin HCl 1500 mg/Sodium Chloride 515 ml @ 257.5 mls/ hr Q8H IV 05/20/17 21:00 05/22/17 04:53 (Levemir Inj) 9 units DAILY SQ 05/21/17 09:00 05/22/17 09:00 Miscellaneous Information SPECIFIC LAB TO BE DRAWN:VANCOMYCIN TROUGH DATE TO... ONCE ONCE .XX 05/23/17 12:45 05/23/17 12:46 A/P Assessment and Plan 21 y/o male with a history of autism who is non verbal, ADHD, and DM was brought to the ED by his parents for right elbow wound. Cellulitis of right elbow with leukocytosis, wbc 11.3, Wound Culture MRSA positive I&D preformed in ED, 2L given in ED -IV antibiotics: Zosyn and vancomycin, discontinued Zosyn by ID and recommended to discharge today he is stable no complaint, will go home on [facility] for daily packing by Wound care and follow with PCP. Clindamycin 300 mg TID for 10 days. DM II uncontrolled, Hemoglobin A1C, better control today continue Home medicines on discharge and follow with PCP. Autistic disorder, chronic -Resume home medications -Parents are ok with Haldol or Ativan in case patient has behavior out burst DVT prophylaxis: SCDs Discussed Condition With Patient, nurse and his Father, all questions answered to the best of my abilities. Discharge Planning Discharge Home on [facility] for wound care. Gunner Mcdonough MD May 22, 2017 10:32
--- NOTE | 2017-05-22 11:08 | HHI.FF ---
Face to Face Verification Diagnosis: (1) Cellulitis of right forearm Home Health Nursing Order: Medical education Signs/symptoms of disease process Diabetic education Medication education-adverse effect Wound care and dressing changes I have seen patient Fabio Muhammad on 05/22/17. My clinical findings support the need for the requested home health care services because: Impaired cognition/judgement I certify that my clinical findings support that this patient is homebound because: Unsafe to leave home unassisted Gunner Mcdonough MD May 22, 2017 10:36
--- NOTE | 2017-05-22 11:08 | HHI.DS ---
Discharge Summary Admission Date May 19, 2017 at 17:12 Discharge Date: May 22, 2017 Admitting Diagnosis cellulitis, abscess right forearm (1) Cellulitis of right forearm ICD Code: L03.113 - Cellulitis of right upper limb Diagnosis: Principal Status: Acute (2) Autistic disorder ICD Code: F84.0 - Active autistic disorder Diagnosis: Secondary Status: Chronic (3) Uncontrolled diabetes mellitus ICD Code: E11.65 - Type 2 diabetes mellitus with hyperglycemia Status: Acute Procedures I and D of the right forearm Brief History - From Admission Written by MARC Boone acting as scribe for [Ihsan] on 05/19/17 at 20: 16. 21 y/o male with a history of autism who is non verbal, ADHD, and DM was brought to the ED by his parents for a right elbow wound. Parents are at the bedside and able to answer all questions. Mom states a week ago she noticed he had a red spot on his elbow, and 2 days ago he had increase tenderness, swelling and redness. He was seen at urgent care today but they said he needed to go to the hospital. Mom states he did not have any other complaints but has had coughing and sneezing due allergies. No complaints of chest pain, or dysuria. He does have an excoriated groin area due to incontinence, he is awaiting for surgery for a suprapubic catheter by Dr. Durham. CBC/BMP: 05/19/17 1555 05/20/17 1015 Significant Findings Laboratory Tests Test 05/19/17 15:55 05/20/17 10:15 05/21/17 12:56 White Blood Count 11.3 TH/MM3 (4.0-11.0) Red Blood Count 4.45 MIL/MM3 (4.50-5.90) Hemoglobin 12.0 GM/DL (13.0-17.0) Hematocrit 35.1 % (39.0-51.0) Mean Corpuscular Volume 78.9 FL (80.0-100.0) Neutrophils (%) (Auto) 73.9 % (16.0-70.0) Monocytes (%) (Auto) 8.6 % (0.0-8.0) Neutrophils # (Auto) 8.4 TH/MM3 (1.8-7.7) Monocytes # (Auto) 1.0 TH/MM3 (0-0.9) Prothrombin Time 12.5 SEC (9.8-11.6) Activated Partial Thromboplast Time 50.0 SEC (24.3-30.1) Random Glucose 222 MG/DL (74-106) 191 MG/DL (74-106) Total Protein 8.3 GM/DL (6.4-8.2) Albumin 3.0 GM/DL (3.4-5.0) 2.8 GM/DL (3.4-5.0) Aspartate Amino Transf (AST/SGOT) 8 U/L (15-39) Sodium Level 134 MEQ/L (136-145) Vancomycin Level Trough 10.3 MCG/ML (5.0-10.0) Imaging No new imaging studies. PE at Discharge GENERAL: This is a well-nourished,non verbal patient with autism. SKIN: I & D to right elbow, draining sanguinous fluid. excoriated groin. HEAD: Atraumatic. Normocephalic. EYES: Pupils equal round and reactive. Extraocular motions intact. ENT: Nose without bleeding, purulent drainage or septal hematoma. Airway patent. NECK: Trachea midline. No JVD or lymphadenopathy. CARDIOVASCULAR: Regular rate and rhythm without murmurs, gallops, or rubs. RESPIRATORY: Clear to auscultation. Breath sounds equal bilaterally. No wheezes , rales, or rhonchi. GASTROINTESTINAL: Abdomen soft, non-tender, nondistended. MUSCULOSKELETAL: Extremities without clubbing, cyanosis, or edema. Right elbow dressed. No calf tenderness. NEUROLOGICAL: Awake and alert. Motor and sensory grossly within normal limits. Normal speech. Hospital Course This is a pleasant 21 y/o Male with Autism, who is non verbal, ADHD and DM II, who was brought in to ER with Right Elbow wound, A week ago she noticed he had a red spot on his elbow, and 2 days ago he had increase tenderness, swelling and redness. He was seen at urgent care today but they said he needed to go to the hospital. Mom states he did not have any other complaints but has had coughing and sneezing due allergies. No complaints of chest pain, or dysuria. He does have an excoriated groin area due to incontinence, he is awaiting for surgery for a suprapubic catheter by Dr. Durham. 05/20: Stable seen in his bedroom, discussed with his Father and nurse, no complaint started diet today ADA 1800 Cals, 05/21: his Father present, eating well, as per ID specialist to continue present care with same antibiotics. 05/22: Stable in his bedroom, seen in the presence of his Father, okay to discharge as per ID specialist will go home on [facility] for Wound care continue packing and continue Clindamycin 300 mg TID for 10 days. No nausea, vomit or diarrhea. Assessment and Plan 21 y/o male with a history of autism who is non verbal, ADHD, and DM was brought to the ED by his parents for right elbow wound. Cellulitis of right elbow with leukocytosis, wbc 11.3, Wound Culture MRSA positive I&D preformed in ED, 2L given in ED -IV antibiotics: Zosyn and vancomycin, discontinued Zosyn by ID and recommended to discharge today he is stable no complaint, will go home on [facility] for daily packing by Wound care and follow with PCP. Clindamycin 300 mg TID for 10 days. DM II uncontrolled, Hemoglobin A1C, better control today continue Home medicines on discharge and follow with PCP. Autistic disorder, chronic -Resume home medications -Parents are ok with Haldol or Ativan in case patient has behavior out burst Right inguinal fungal infection on Nystatin Powder and continue outpatient. DVT prophylaxis: SCDs Discussed Condition With Patient, nurse and his Father, all questions answered to the best of my abilities. Discharge Planning Discharge Home on [facility] for wound care. Pt Condition on Discharge: Good Discharge Disposition: Disch w/ Home Health Serv Discharge Time: <= 30 minutes Discharge Instructions DIET: Follow Instructions for: Heart Healthy Diet, Diabetic Diet Activities you can perform: Regular-No Restrictions Gunner Mcdonough MD May 22, 2017 10:39
[2017-05-22 12:14] VITALS: BP 129/78; PULSE 78; RESP 18; TEMP 98.2; O2SAT 97
[2017-05-22 16:23] VITALS: BP 137/87; PULSE 61; RESP 18; TEMP 97.4; O2SAT 98
[2017-05-22 20:30] VITALS: BP 152/95; PULSE 56; RESP 17; TEMP 98.4; O2SAT 97
[2017-05-23 01:10] VITALS: BP 170/81; PULSE 62; RESP 17; TEMP 98.4; O2SAT 97
[2017-05-23] MEDS: VANCOMYCIN 1,500 MG/NS 500 ML IV SCH ×2 (05:00)
[2017-05-23 05:43] VITALS: BP 136/88; PULSE 71; RESP 17; TEMP 97.6; O2SAT 98
[2017-05-23 08:23] VITALS: BP 140/84; PULSE 57; RESP 18; TEMP 97.5; O2SAT 97
[2017-05-23] MEDS: SODIUM CHLORIDE 0.9% FLUSH 10 ML FLUSH IV FLUSH SCH ×2 (09:00→21:00)
[2017-05-23] MEDS: NYSTATIN 100,000 U/GM PWD 15 GM BTL TOPICAL SCH ×2 (09:00→21:00)
[2017-05-23] MEDS: FENOFIBRATE 48 MG TAB PO SCH (09:56)
[2017-05-23] MEDS: CLINDAMYCIN 150 MG CAP PO SCH ×3 (09:56→17:40)
[2017-05-23] MEDS: PROPRANOLOL HCL 40 MG TAB PO SCH ×2 (09:56→22:01)
[2017-05-23] MEDS: guanFACINE HCL 2 MG E.R. TAB PO SCH ×2 (09:56→22:01)
[2017-05-23] MEDS: clonazePAM 1 MG TAB PO SCH ×2 (09:56→22:01)
[2017-05-23] MEDS: INSULIN DETEMIR 100 UNITS/ML VIAL SQ SCH (09:57)
[2017-05-23 11:57] VITALS: BP 96/56; PULSE 50; RESP 18; TEMP 98.3; O2SAT 98
[2017-05-23] MEDS: INSULIN ASPART SUPPLEMENTAL SCALE SQ SCH ×4 (12:00→21:00)
[2017-05-23] MEDS ORDERED: PHARMACY ORDERED LAB ONE (12:45)
[2017-05-23 16:24] VITALS: BP 136/87; PULSE 65; RESP 18; TEMP 97.4; O2SAT 96
[2017-05-23 20:28] VITALS: BP 140/79; PULSE 66; RESP 20; TEMP 98.8; O2SAT 97
[2017-05-24] VITALS: BP 116/68; PULSE 63; RESP 20; TEMP 97.8; O2SAT 95
[2017-05-24 04:00] VITALS: BP 125/70; PULSE 60; RESP 20; TEMP 98; O2SAT 96
[2017-05-24 08:00] VITALS: BP 137/92; PULSE 81; RESP 16; TEMP 97.4; O2SAT 96
[2017-05-24] MEDS: INSULIN ASPART SUPPLEMENTAL SCALE SQ SCH (08:00)
[2017-05-24] MEDS: INSULIN DETEMIR 100 UNITS/ML VIAL SQ SCH (08:14)
[2017-05-24] MEDS: CLINDAMYCIN 150 MG CAP PO SCH (08:15)
[2017-05-24] MEDS: SODIUM CHLORIDE 0.9% FLUSH 10 ML FLUSH IV FLUSH SCH (08:15)
[2017-05-24] MEDS: NYSTATIN 100,000 U/GM PWD 15 GM BTL TOPICAL SCH (08:16)
[2017-05-24] MEDS: PROPRANOLOL HCL 40 MG TAB PO SCH (08:16)
[2017-05-24] MEDS: FENOFIBRATE 48 MG TAB PO SCH (08:16)
[2017-05-24] MEDS: guanFACINE HCL 2 MG E.R. TAB PO SCH (08:16)
[2017-05-24] MEDS: clonazePAM 1 MG TAB PO SCH (08:16)
--- NOTE | 2017-05-24 08:19 | HHI.PR ---
Subjective Remarks Follow up for 05/23/13: This is a pleasant 21 y/o Male with Autism, who is non verbal, ADHD and DM II, who was brought in to ER with Right Elbow wound, A week ago she noticed he had a red spot on his elbow, and 2 days ago he had increase tenderness, swelling and redness. He was seen at urgent care today but they said he needed to go to the hospital. Mom states he did not have any other complaints but has had coughing and sneezing due allergies. No complaints of chest pain, or dysuria. He does have an excoriated groin area due to incontinence, he is awaiting for surgery for a suprapubic catheter by Dr. Durham. 05/20: Stable seen in his bedroom, discussed with his Father and nurse, no complaint started diet today ADA 1800 Cals, 05/21: his Father present, eating well, as per ID specialist to continue present care with same antibiotics. 05/22: Stable in his bedroom, seen in the presence of his Father, okay to discharge as per ID specialist will go home on [facility] for Wound care continue packing and continue Clindamycin 300 mg TID for 10 days. No nausea, vomit or diarrhea. 05/23: The patient was seen in his bedroom and discussed with his Father and with Trimming Machine Operator and nurse, was discharged yesterday but not yet discharged due to Insurance difficulties, continue Trimming Machine Operator working on that, he will go to Home with [facility] for wound care. Objective Vital Signs Date Time Temp Pulse Resp B/P (MAP) Pulse Ox O2 Delivery O2 Flow Rate FiO2 05/24/17 04:00 98.0 60 20 125/70 (88) 96 05/24/17 00:00 97.8 63 20 116/68 (84) 95 05/23/17 20:28 98.8 66 20 140/79 (99) 97 05/23/17 16:24 97.4 65 18 136/87 (103) 96 05/23/17 11:57 98.3 50 18 96/56 (69) 98 05/23/17 08:23 97.5 57 18 140/84 (102) 97 I/O 05/23/17 05/23/17 05/23/17 05/24/17 05/24/17 05/24/17 07:00 15:00 23:00 07:00 15:00 23:00 Intake Total 360 ml 360 ml 120 ml Output Total 120 ml Balance 360 ml 360 ml 0 ml Intake Oral 360 ml 360 ml 120 ml Output Urine Total 120 ml # Voids 4 # Bowel Movements 1 0 Result Diagram: 05/20/17 1015 Imaging No new imaging studies performed. Procedures Left Elbow I and D. Other Results Laboratory Tests Test 05/19/17 15:55 05/20/17 10:15 05/23/17 14:18 White Blood Count 11.3 TH/MM3 Red Blood Count 4.45 MIL/MM3 Hemoglobin 12.0 GM/DL Hematocrit 35.1 % Mean Corpuscular Volume 78.9 FL Mean Corpuscular Hemoglobin 27.0 PG Mean Corpuscular Hemoglobin Concent 34.3 % Red Cell Distribution Width 14.1 % Platelet Count 367 TH/MM3 Mean Platelet Volume 7.1 FL Neutrophils (%) (Auto) 73.9 % Lymphocytes (%) (Auto) 17.2 % Monocytes (%) (Auto) 8.6 % Eosinophils (%) (Auto) 0.0 % Basophils (%) (Auto) 0.3 % Neutrophils # (Auto) 8.4 TH/MM3 Lymphocytes # (Auto) 2.0 TH/MM3 Monocytes # (Auto) 1.0 TH/MM3 Eosinophils # (Auto) 0.0 TH/MM3 Basophils # (Auto) 0.0 TH/MM3 CBC Comment DIFF FINAL Differential Comment Prothrombin Time 12.5 SEC Prothromb Time International Ratio 1.1 RATIO Activated Partial Thromboplast Time 50.0 SEC Lactic Acid Level 1.1 mmol/L Blood Urea Nitrogen 8 MG/DL Creatinine 0.67 MG/DL Random Glucose 191 MG/DL Total Protein 7.9 GM/DL Albumin 2.8 GM/DL Calcium Level 8.7 MG/DL Alkaline Phosphatase 84 U/L Aspartate Amino Transf (AST/SGOT) 21 U/L Alanine Aminotransferase (ALT/SGPT) 18 U/L Total Bilirubin 0.5 MG/DL Sodium Level 137 MEQ/L Potassium Level 4.2 MEQ/L Chloride Level 104 MEQ/L Carbon Dioxide Level 22.7 MEQ/L Anion Gap 10 MEQ/L Estimat Glomerular Filtration Rate 153 ML/MIN Vancomycin Level Trough 6.0 MCG/ML Objective Remarks GENERAL: This is a well-nourished,non verbal patient with autism. SKIN: I & D to right elbow, draining sanguinous fluid. excoriated groin. HEAD: Atraumatic. Normocephalic. EYES: Pupils equal round and reactive. Extraocular motions intact. ENT: Nose without bleeding, purulent drainage or septal hematoma. Airway patent. NECK: Trachea midline. No JVD or lymphadenopathy. CARDIOVASCULAR: Regular rate and rhythm without murmurs, gallops, or rubs. RESPIRATORY: Clear to auscultation. Breath sounds equal bilaterally. No wheezes , rales, or rhonchi. GASTROINTESTINAL: Abdomen soft, non-tender, nondistended. MUSCULOSKELETAL: Extremities without clubbing, cyanosis, or edema. Right elbow dressed. No calf tenderness. NEUROLOGICAL: Awake and alert. Motor and sensory grossly within normal limits. Normal speech. Medications and IVs Current Medications Medications (Trade) Dose Ordered Sig/Arvin Route Start Time Stop Time Status Last Admin Pharmacy Profile Note 0 ml @ 0 mls/hr UNSCH OTHER 05/19/17 17:30 (NS Flush) 2 ml UNSCH PRN IV FLUSH 05/19/17 17:30 (NS Flush) 2 ml BID IV FLUSH 05/19/17 21:00 05/22/17 09:00 (Tylenol) 650 mg Q4H PRN PO 05/19/17 17:30 (Narcan Inj) 0.4 mg UNSCH PRN IV PUSH 05/19/17 17:30 (Milk Of Magnesia Liq) 30 ml Q12H PRN PO 05/19/17 17:30 (Senokot) 17.2 mg Q12H PRN PO 05/19/17 17:30 (Lactulose Liq) 30 ml DAILY PRN PO 05/19/17 17:30 (KlonoPIN) 2 mg BID PO 05/19/17 21:00 05/24/17 08:16 (Tricor) 48 mg DAILY PO 05/20/17 09:00 05/24/17 08:16 (Intuniv Er) 4 mg BID PO 05/19/17 21:00 05/24/17 08:16 (Inderal) 40 mg BID PO 05/19/17 21:00 05/24/17 08:16 (Thorazine) 400 mg TID PO 05/20/17 09:00 05/24/17 08:15 Patient Own Medication PT OWN MED: SAPHRIS(ASENAPINE) 10 MG SL BID BID SL 05/19/17 21:00 Future Hold (D50w (Vial) Inj) 50 ml UNSCH PRN IV 05/19/17 21:00 (Glucagon Inj) 1 mg UNSCH PRN OTHER 05/19/17 21:00 (NovoLOG SUPPLEMENTAL SCALE) 1 ACHS SLIDING SCALE SQ 05/19/17 21:00 05/24/17 08:00 (Mycostatin Powder) 1 applic Q12HR TOPICAL 05/20/17 10:15 05/24/17 08:16 Vancomycin HCl 1500 mg/Sodium Chloride 515 ml @ 257.5 mls/ hr Q8H IV 05/20/17 21:00 Future Hold 05/22/17 21:52 (Levemir Inj) 9 units DAILY SQ 05/21/17 09:00 05/24/17 08:14 (Cleocin) 300 mg TID PO 05/23/17 09:00 05/24/17 08:15 A/P Assessment and Plan 21 y/o male with a history of autism who is non verbal, ADHD, and DM was brought to the ED by his parents for right elbow wound. Cellulitis of right elbow with leukocytosis, wbc 11.3, Wound Culture MRSA positive I&D preformed in ED, 2L given in ED -IV antibiotics: Zosyn and vancomycin, discontinued Zosyn by ID and recommended to discharge today he is stable no complaint, will go home on [facility] for daily packing by Wound care and follow with PCP. Clindamycin 300 mg TID for 10 days. DM II uncontrolled, Hemoglobin A1C, better control today continue Home medicines on discharge and follow with PCP. Autistic disorder, chronic -Resume home medications -Parents are ok with Haldol or Ativan in case patient has behavior out burst DVT prophylaxis: SCDs Discussed Condition With Patient, nurse, Trimming Machine Operator and his Father, all questions answered to the best of my abilities. Discharge Planning Discharge Home on [facility] for wound care. Gunner Mcdonough MD May 24, 2017 08:19
--- NOTE | 2017-05-24 08:22 | HHI.PR ---
Subjective Remarks Follow up for 05/23/13: This is a pleasant 21 y/o Male with Autism, who is non verbal, ADHD and DM II, who was brought in to ER with Right Elbow wound, A week ago she noticed he had a red spot on his elbow, and 2 days ago he had increase tenderness, swelling and redness. He was seen at urgent care today but they said he needed to go to the hospital. Mom states he did not have any other complaints but has had coughing and sneezing due allergies. No complaints of chest pain, or dysuria. He does have an excoriated groin area due to incontinence, he is awaiting for surgery for a suprapubic catheter by Dr. Durham. 05/20: Stable seen in his bedroom, discussed with his Father and nurse, no complaint started diet today ADA 1800 Cals, 05/21: his Father present, eating well, as per ID specialist to continue present care with same antibiotics. 05/22: Stable in his bedroom, seen in the presence of his Father, okay to discharge as per ID specialist will go home on [facility] for Wound care continue packing and continue Clindamycin 300 mg TID for 10 days. No nausea, vomit or diarrhea. 05/23: The patient was seen in his bedroom and discussed with his Father and with Supply Chain Director and nurse, was discharged yesterday but not yet discharged due to Insurance difficulties, continue Supply Chain Director working on that, he will go to Home with [facility] for wound care. 05/24: Seen in his bedroom and discussed with nurse Miss Lorenzo and his Father his wound is closing and no need for packing anymore, do not need wound care at home but will need to follow his PCP in two to three days for reevaluation. Objective Vital Signs Date Time Temp Pulse Resp B/P (MAP) Pulse Ox O2 Delivery O2 Flow Rate FiO2 05/24/17 04:00 98.0 60 20 125/70 (88) 96 05/24/17 00:00 97.8 63 20 116/68 (84) 95 05/23/17 20:28 98.8 66 20 140/79 (99) 97 05/23/17 16:24 97.4 65 18 136/87 (103) 96 05/23/17 11:57 98.3 50 18 96/56 (69) 98 05/23/17 08:23 97.5 57 18 140/84 (102) 97 I/O 05/23/17 05/23/17 05/23/17 05/24/17 05/24/17 05/24/17 07:00 15:00 23:00 07:00 15:00 23:00 Intake Total 360 ml 360 ml 120 ml Output Total 120 ml Balance 360 ml 360 ml 0 ml Intake Oral 360 ml 360 ml 120 ml Output Urine Total 120 ml # Voids 4 # Bowel Movements 1 0 Result Diagram: 05/20/17 1015 Imaging No new imaging studies Performed Procedures Left Elbow I and D. Other Results Laboratory Tests Test 05/19/17 15:55 05/20/17 10:15 05/23/17 14:18 White Blood Count 11.3 TH/MM3 Red Blood Count 4.45 MIL/MM3 Hemoglobin 12.0 GM/DL Hematocrit 35.1 % Mean Corpuscular Volume 78.9 FL Mean Corpuscular Hemoglobin 27.0 PG Mean Corpuscular Hemoglobin Concent 34.3 % Red Cell Distribution Width 14.1 % Platelet Count 367 TH/MM3 Mean Platelet Volume 7.1 FL Neutrophils (%) (Auto) 73.9 % Lymphocytes (%) (Auto) 17.2 % Monocytes (%) (Auto) 8.6 % Eosinophils (%) (Auto) 0.0 % Basophils (%) (Auto) 0.3 % Neutrophils # (Auto) 8.4 TH/MM3 Lymphocytes # (Auto) 2.0 TH/MM3 Monocytes # (Auto) 1.0 TH/MM3 Eosinophils # (Auto) 0.0 TH/MM3 Basophils # (Auto) 0.0 TH/MM3 CBC Comment DIFF FINAL Differential Comment Prothrombin Time 12.5 SEC Prothromb Time International Ratio 1.1 RATIO Activated Partial Thromboplast Time 50.0 SEC Lactic Acid Level 1.1 mmol/L Blood Urea Nitrogen 8 MG/DL Creatinine 0.67 MG/DL Random Glucose 191 MG/DL Total Protein 7.9 GM/DL Albumin 2.8 GM/DL Calcium Level 8.7 MG/DL Alkaline Phosphatase 84 U/L Aspartate Amino Transf (AST/SGOT) 21 U/L Alanine Aminotransferase (ALT/SGPT) 18 U/L Total Bilirubin 0.5 MG/DL Sodium Level 137 MEQ/L Potassium Level 4.2 MEQ/L Chloride Level 104 MEQ/L Carbon Dioxide Level 22.7 MEQ/L Anion Gap 10 MEQ/L Estimat Glomerular Filtration Rate 153 ML/MIN Vancomycin Level Trough 6.0 MCG/ML Objective Remarks GENERAL: This is a well-nourished,non verbal patient with autism. SKIN: I & D to right elbow, draining sanguinous fluid. excoriated groin. HEAD: Atraumatic. Normocephalic. EYES: Pupils equal round and reactive. Extraocular motions intact. ENT: Nose without bleeding, purulent drainage or septal hematoma. Airway patent. NECK: Trachea midline. No JVD or lymphadenopathy. CARDIOVASCULAR: Regular rate and rhythm without murmurs, gallops, or rubs. RESPIRATORY: Clear to auscultation. Breath sounds equal bilaterally. No wheezes , rales, or rhonchi. GASTROINTESTINAL: Abdomen soft, non-tender, nondistended. MUSCULOSKELETAL: Extremities without clubbing, cyanosis, or edema. Right elbow dressed. No calf tenderness. NEUROLOGICAL: Awake and alert. Motor and sensory grossly within normal limits. Normal speech. Medications and IVs Current Medications Medications (Trade) Dose Ordered Sig/Arvin Route Start Time Stop Time Status Last Admin Pharmacy Profile Note 0 ml @ 0 mls/hr UNSCH OTHER 05/19/17 17:30 (NS Flush) 2 ml UNSCH PRN IV FLUSH 05/19/17 17:30 (NS Flush) 2 ml BID IV FLUSH 05/19/17 21:00 05/22/17 09:00 (Tylenol) 650 mg Q4H PRN PO 05/19/17 17:30 (Narcan Inj) 0.4 mg UNSCH PRN IV PUSH 05/19/17 17:30 (Milk Of Magnesia Liq) 30 ml Q12H PRN PO 05/19/17 17:30 (Senokot) 17.2 mg Q12H PRN PO 05/19/17 17:30 (Lactulose Liq) 30 ml DAILY PRN PO 05/19/17 17:30 (KlonoPIN) 2 mg BID PO 05/19/17 21:00 05/24/17 08:16 (Tricor) 48 mg DAILY PO 05/20/17 09:00 05/24/17 08:16 (Intuniv Er) 4 mg BID PO 05/19/17 21:00 05/24/17 08:16 (Inderal) 40 mg BID PO 05/19/17 21:00 05/24/17 08:16 (Thorazine) 400 mg TID PO 05/20/17 09:00 05/24/17 08:15 Patient Own Medication PT OWN MED: SAPHRIS(ASENAPINE) 10 MG SL BID BID SL 05/19/17 21:00 Future Hold (D50w (Vial) Inj) 50 ml UNSCH PRN IV 05/19/17 21:00 (Glucagon Inj) 1 mg UNSCH PRN OTHER 05/19/17 21:00 (NovoLOG SUPPLEMENTAL SCALE) 1 ACHS SLIDING SCALE SQ 05/19/17 21:00 05/24/17 08:00 (Mycostatin Powder) 1 applic Q12HR TOPICAL 05/20/17 10:15 05/24/17 08:16 Vancomycin HCl 1500 mg/Sodium Chloride 515 ml @ 257.5 mls/ hr Q8H IV 05/20/17 21:00 Future Hold 05/22/17 21:52 (Levemir Inj) 9 units DAILY SQ 05/21/17 09:00 05/24/17 08:14 (Cleocin) 300 mg TID PO 05/23/17 09:00 05/24/17 08:15 A/P Assessment and Plan 21 y/o male with a history of autism who is non verbal, ADHD, and DM was brought to the ED by his parents for right elbow wound. Cellulitis of right elbow with leukocytosis, wbc 11.3, Wound Culture MRSA positive I&D preformed in ED, 2L given in ED -IV antibiotics: Zosyn and vancomycin, discontinued Zosyn by ID and recommended to discharge today he is stable no complaint, will go home no need for HHC due to that he has no packing anymore. and follow with PCP. Clindamycin 300 mg TID for 10 days. DM II uncontrolled, Hemoglobin A1C 11.2, Poorly controlled DM Autistic disorder, chronic -Resume home medications -Parents are ok with Haldol or Ativan in case patient has behavior out burst DVT prophylaxis: SCDs Discussed Condition With Patient, nurse Miss Lorenzo, Supply Chain Director and his Father, all questions answered to the best of my abilities. Discharge Planning Discharge Home Gunner Mcdonough MD May 24, 2017 08:22
--- NOTE | 2017-05-24 09:53 | HHI.DS ---
Discharge Summary Admission Date May 19, 2017 at 17:12 Discharge Date: May 24, 2017 Admitting Diagnosis cellulitis, abscess right forearm (1) Cellulitis of right forearm ICD Code: L03.113 - Cellulitis of right upper limb Diagnosis: Principal Status: Acute (2) Autistic disorder ICD Code: F84.0 - Active autistic disorder Diagnosis: Secondary Status: Chronic (3) Uncontrolled diabetes mellitus ICD Code: E11.65 - Type 2 diabetes mellitus with hyperglycemia Diagnosis: Principal Status: Acute Procedures I and D of the right forearm Brief History - From Admission Written by MARC Boone acting as scribe for [Ihsan] on 05/19/17 at 20: 16. 21 y/o male with a history of autism who is non verbal, ADHD, and DM was brought to the ED by his parents for a right elbow wound. Parents are at the bedside and able to answer all questions. Mom states a week ago she noticed he had a red spot on his elbow, and 2 days ago he had increase tenderness, swelling and redness. He was seen at urgent care today but they said he needed to go to the hospital. Mom states he did not have any other complaints but has had coughing and sneezing due allergies. No complaints of chest pain, or dysuria. He does have an excoriated groin area due to incontinence, he is awaiting for surgery for a suprapubic catheter by Dr. Durham. CBC/BMP: 05/20/17 1015 Significant Findings Laboratory Tests Test 05/21/17 12:56 05/23/17 14:18 Vancomycin Level Trough 10.3 MCG/ML (5.0-10.0) Imaging No Imaging studies. PE at Discharge GENERAL: This is a well-nourished,non verbal patient with autism. SKIN: I & D to right elbow, draining sanguinous fluid. excoriated groin. HEAD: Atraumatic. Normocephalic. EYES: Pupils equal round and reactive. Extraocular motions intact. ENT: Nose without bleeding, purulent drainage or septal hematoma. Airway patent. NECK: Trachea midline. No JVD or lymphadenopathy. CARDIOVASCULAR: Regular rate and rhythm without murmurs, gallops, or rubs. RESPIRATORY: Clear to auscultation. Breath sounds equal bilaterally. No wheezes , rales, or rhonchi. GASTROINTESTINAL: Abdomen soft, non-tender, nondistended. MUSCULOSKELETAL: Extremities without clubbing, cyanosis, or edema. Right elbow dressed. No calf tenderness. NEUROLOGICAL: Awake and alert. Motor and sensory grossly within normal limits. Normal speech. Hospital Course This is a pleasant 21 y/o Male with Autism, who is non verbal, ADHD and DM II, who was brought in to ER with Right Elbow wound, A week ago she noticed he had a red spot on his elbow, and 2 days ago he had increase tenderness, swelling and redness. He was seen at urgent care today but they said he needed to go to the hospital. Mom states he did not have any other complaints but has had coughing and sneezing due allergies. No complaints of chest pain, or dysuria. He does have an excoriated groin area due to incontinence, he is awaiting for surgery for a suprapubic catheter by Dr. Durham. 05/20: Stable seen in his bedroom, discussed with his Father and nurse, no complaint started diet today ADA 1800 Cals, 05/21: his Father present, eating well, as per ID specialist to continue present care with same antibiotics. 05/22: Stable in his bedroom, seen in the presence of his Father, okay to discharge as per ID specialist will go home on [facility] for Wound care continue packing and continue Clindamycin 300 mg TID for 10 days. No nausea, vomit or diarrhea. 05/23: The patient was seen in his bedroom and discussed with his Father and with Director Of Staff Development and nurse, was discharged yesterday but not yet discharged due to Insurance difficulties, continue Director Of Staff Development working on that, he will go to Home with [facility] for wound care. 05/24: Seen in his bedroom and discussed with nurse Miss Lorenzo and his Father his wound is closing and no need for packing anymore, do not need wound care at home but will need to follow his PCP in two to three days for reevaluation. Assessment and Plan 21 y/o male with a history of autism who is non verbal, ADHD, and DM was brought to the ED by his parents for right elbow wound. Cellulitis of right elbow with leukocytosis, wbc 11.3, Wound Culture MRSA positive I&D preformed in ED, 2L given in ED -IV antibiotics: Zosyn and vancomycin, discontinued Zosyn by ID and recommended to discharge today he is stable no complaint, will go home no need for HHC due to that he has no packing anymore. and follow with PCP. Clindamycin 300 mg TID for 10 days. DM II uncontrolled, Hemoglobin A1C 11.2, Poorly controlled DM Autistic disorder, chronic -Resume home medications -Parents are ok with Haldol or Ativan in case patient has behavior out burst DVT prophylaxis: SCDs Discussed Condition With Patient, nurse Miss Lorenzo, Director Of Staff Development and his Father, all questions answered to the best of my abilities. Discharge Planning Discharge Home Pt Condition on Discharge: Good Discharge Disposition: Discharge Home Discharge Time: > 30 minutes Discharge Instructions DIET: Follow Instructions for: Heart Healthy Diet, Diabetic Diet Activities you can perform: Regular-No Restrictions Gunner Mcdonough MD May 24, 2017 09:53
[2017-06-02] MEDS ORDERED: PERC5TAB12 PO (12:22)
[2017-06-02] MEDS ORDERED: CEPH-459 PO (12:22)
== END 2017-05-24 10:28 | disposition home or self-care (01) | DRG 603 ==
LOC: NEPC 15:04 → NEDA 17:12 → N05A 21:37
PROVIDERS: ADMIT Internal Medicine; ATTEND Internal Medicine
PROC: 0H9DXZZ Drainage of Right Lower Arm Skin, External Approach (ICD-10-PCS; principal; 2017-05-19)
DX: L03.113 Cellulitis of right upper limb (principal); E11.65 Type 2 diabetes mellitus with hyperglycemia; F84.0 Autistic disorder; L02.413 Cutaneous abscess of right upper limb; B95.62 Methicillin resistant Staphylococcus aureus infection as the cause of diseases classified elsewhere; B37.2 Candidiasis of skin and nail; R32 Unspecified urinary incontinence; F90.9 Attention-deficit hyperactivity disorder, unspecified type; Z79.4 Long term (current) use of insulin
CPT/HCPCS: 80053; 80202; 82948; 83605; 85025; 85610; 85730; 86403; 87040; 87070; 87147; 87186; 93005; 96374; 96375; J1815; J2060; J2270; J2543; J3370; J7030; J7040; J7050

== ENCOUNTER → 2017-06-02 | Day surgery (SDC) | payer OTHER ==
[~2017-06-02] VITALS: Ht 188 cm; Wt 98.1 kg
[~2017-06-02] MED LIST changes: +ACETAMINOPHEN 1000 MG/100 ML 100 ML IV ONE; +CEPH-459 PO; +CHLORHEXIDINE GLUCONATE 2 % 1 PACK (2 CLOTHS) TOPICAL PRN; +CLIN1CAP6 PO; +DO NOT ADM ANY ANTICOAGULANT DRUGS PRN; +FENO48TA PO; +GLYCOPYRROLATE 1 MG/5 ML SYRINGE IV PUSH ONE; +HYDROmorphone HCL PF 1 MG/ML VIAL IV PUSH PRN; +INSULIN HUMAN REGULAR 1,000 UNITS/10 ML VIAL SQ PRN; +LACTATED RINGER'S 1000 ML IV PRN; +METOPROLOL TARTRATE 25 MG TAB PO PRN; +MIDAZOLAM HCL 5 MG/5 ML VIAL IV ONE; +NYST10007 TOPICAL; +ONDANSETRON HCL 4 MG/2 ML VIAL IV PUSH ONE; +ONDANSETRON HCL 4 MG/2 ML VIAL IV PUSH PRN; +PERC5TAB12 PO; +POVIDONE IODINE 5% (ANTISEPSIS KIT) 4 APPLICATIONS EACH NARE PRN; +PROPOFOL 200 MG/20 ML AMP IV ONE; +SODIUM CHLORID 0.9% 500 ML IV PRN; +ceFAZolin 2 GM PREMIX 50 ML IV SCH; +ePHEDrine/NS 25 MG/5 ML SYR IV ONE
[2017-06-02 09:25] LABS: AUTOMATED NEUTROPHIL # 5.7 TH/MM3 (1.8-7.7); BASOPHIL % 0.3 % (0.0-2.0); HEMATOCRIT 42.7 % (39.0-51.0); LYMPH % 28.4 % (9.0-44.0); LYMPHOCYTE # 2.5 TH/MM3 (1.0-4.8); MEAN CELL VOLUME 80.4 FL (80.0-100.0); MEAN CORPUSCULAR HEMOGLOBIN 27.9 PG (27.0-34.0); MEAN CORPUSCULAR HGB CONC 34.6 % (32.0-36.0); MONO % 6.8 % (0.0-8.0); NEUT % 64.5 % (16.0-70.0); PLATELET COUNT 323 TH/MM3 (150-450); RED BLOOD COUNT 5.31 MIL/MM3 (4.50-5.90); RED CELL DISTRIBUTION WIDTH 15.7 % (11.6-17.2); WHITE BLOOD COUNT 8.9 TH/MM3 (4.0-11.0)
[2017-06-02 09:27] LABS: HEMO FLAGS DIFF FINAL
--- NOTE | 2017-06-02 12:20 | PD.OP ---
Operative Report Date of Surgery: Jun 02, 2017 Preoperative Diagnosis: (1) Incontinence Postoperative Diagnosis: (1) Urethral stricture (2) Incontinence Procedure: Cystoscopy and direct visual internal urethrotomy Anesthesia: General Surgeon: Bebeto Durham Barrel Reamer(s): None Operation and Findings: Indication for procedure: Case of a 21-year-old male with history of autism, diabetes mellitus and Nate's gangrene of the scrotum was recently evaluated for urinary incontinence and noted to have a distended bladder. Patient presents today for cystoscopic evaluation and possible placement of suprapubic catheter. Operative procedure in detail: Patient was brought to the operating suite and placed supine on the OR table. He is in place and general anesthesia. He was then repositioned in the dorsolithotomy position and prepped and draped in normal sterile fashion. After an appropriate timeout was undertaken proceeded with attempted cystoscopic evaluation utilizing the rigid cystoscope with the 19 Brazilian sheath and 30 lens. The scope was advanced up to the point of the bulbar urethra where there was a pinhole sized opening within a urethral stricture. The cystoscope was exchanged for the direct visual internal urethrotome and a direct visual internal urethrotomy was performed by cutting at the 12 o'clock position. Once the stricture was opened the cystoscope was utilized and the remainder cystoscopic evaluation completed. The external sphincter was intact and the prostatic urethra was nonobstructing. Both left and right ureteral orifices were in correct anatomic position effluxing clear yellow urine. The bladder was not trabeculated. No bladder mucosal lesions calculi or diverticula formation noted. A sensor 0.35 wire was advanced to the cystoscope and the cystoscope withdrawn. A 20 Brazilian [place] Rogers was then advanced over the wire and the wire withdrawn. The Rogers was connected to gravity drainage with clear output. The patient tolerated the procedures without complications and was transferred to the PACU in satisfactory condition. Bebeto Durham MD Jun 02, 2017 12:20
[2017-06-02 14:20] VITALS: BP 114/81; PULSE 116; RESP 16; TEMP 94.1; O2SAT 100
== END | disposition home or self-care (01) ==
LOC: HSDC 07:50
PROVIDERS: ATTEND Urology
DX: R32 Unspecified urinary incontinence (principal); N35.9 Urethral stricture, unspecified; E78.5 Hyperlipidemia, unspecified; E10.9 Type 1 diabetes mellitus without complications; E66.9 Obesity, unspecified
CPT/HCPCS: 00910; 52276; 82948; 85025; C1769; J0131; J0690; J1815; J2250; J2405; J7120

== ENCOUNTER → 2017-09-22 | Day surgery (SDC) | payer OTHER ==
[~2017-09-22] VITALS: Ht 188 cm; Wt 98.0 kg
[~2017-09-22] MED LIST changes: -ACETAMINOPHEN 1000 MG/100 ML 100 ML IV ONE; -CLIN1CAP6 PO; -GLYCOPYRROLATE 1 MG/5 ML SYRINGE IV PUSH ONE; -HYDROmorphone HCL PF 1 MG/ML VIAL IV PUSH PRN; +INSULIN HUMAN REGULAR 1,000 UNITS/10 ML VIAL ONE; +LIDOCAINE HCL 1% PF 5 ML SYRINGE OTHER ONE; -MIDAZOLAM HCL 5 MG/5 ML VIAL IV ONE; +ONDANSETRON HCL 4 MG/2 ML VIAL IV ONE; -ONDANSETRON HCL 4 MG/2 ML VIAL IV PUSH ONE; +VESI5TAB2 PO; -ePHEDrine/NS 25 MG/5 ML SYR IV ONE; +oxyCODONE/ACETAMINOPHEN 5 MG/325 MG TAB PO PRN
[2017-09-22 10:31] LABS: BASOPHIL % 0.4 % (0.0-2.0); HEMATOCRIT 42.9 % (39.0-51.0); HEMOGLOBIN 14.8 GM/DL (13.0-17.0); LYMPH % 22.1 % (9.0-44.0); LYMPHOCYTE # 1.6 TH/MM3 (1.0-4.8); MEAN CELL VOLUME 80.1 FL (80.0-100.0); MEAN CORPUSCULAR HEMOGLOBIN 27.7 PG (27.0-34.0); MEAN CORPUSCULAR HGB CONC 34.6 % (32.0-36.0); MEAN PLATELET VOLUME 7.6 FL (7.0-11.0); MONO % 5.9 % (0.0-8.0); MONOCYTE # 0.4 TH/MM3 (0-0.9); NEUT % 71.6 % (16.0-70.0); PLATELET COUNT 332 TH/MM3 (150-450); RED BLOOD COUNT 5.35 MIL/MM3 (4.50-5.90); RED CELL DISTRIBUTION WIDTH 14.3 % (11.6-17.2)
--- NOTE | 2017-09-22 12:09 | PD.OP ---
Operative Report Date of Surgery: Sep 22, 2017 Preoperative Diagnosis: (1) Urinary retention (2) Incontinence Postoperative Diagnosis: (1) Urinary retention (2) Incontinence Procedure: Cystoscopy and placement of suprapubic catheter Anesthesia: General Surgeon: Bebeto Durham Dividend Deposit Voucher Clerk(s): None Operation and Findings: Indication for procedures: Case of a 21-year-old gentleman with a history of urinary retention and urinary incontinence was being managed with a Rogers catheter. Patient presents today for cystoscopy and placement of a suprapubic catheter. Operative procedure in detail: Patient was brought to the operating room suite and placed supine on the OR table. He was then placed and general anesthesia. He was then repositioned in the dorsolithotomy position and prepped and draped in normal sterile fashion. After appropriate timeout was undertaken, I proceeded with cystoscopic evaluation utilizing the rigid cystoscope with a 20 Yoruba sheath and both the 30 and 70 lenses. The urethra was patent without recurrent stricture formation, the prostatic urethra was not obstructing and further passage of the cystoscope within the urinary bladder demonstrated both right and left ureteral orifices to be draining clear yellow urine. There were no bladder carcinoma lesions, calculi or diverticula formation noted. The urinary bladder was distended with irrigation after instillation of approximately 400 cc. I then was able to advance a spinal needle approximately 1 cm above the symphysis pubis and was able to palpate clearly within the urinary bladder. The trajectory of the needle was noted and subsequently withdrawn. The suprapubic insertion trocar was then utilized and I proceeded with the same trajectory as the previously placed spinal needle. Under direct vision via cystoscope was able to puncture through the anterior bladder wall and into the urinary bladder, the obturator was withdrawn and a 16 Yoruba Rogers catheter was placed. With the Rogers in place, the peel-away sheath was removed. There was minimal bleeding noted. The Rogers was then secured with a 2 -0 silk suture and a sterile dressing applied. The patient tolerated the procedures without complications and was transferred to the PACU in satisfactory condition. Bebeto Durham MD Sep 22, 2017 12:09
[2017-09-22 13:52] VITALS: BP 141/84; PULSE 92; RESP 20; TEMP 97.5; O2SAT 100
== END | disposition home or self-care (01) ==
LOC: HSDC 08:55
PROVIDERS: ATTEND Urology
DX: R33.9 Retention of urine, unspecified (principal); R32 Unspecified urinary incontinence; Z01.818 Encounter for other preprocedural examination
CPT/HCPCS: 00800; 51102; 85025; J0690; J1815; J2405; J3010; J7120

== ENCOUNTER 2017-10-24 18:54 | Emergency (ER) | payer OTHER ==
[~2017-10-24] VITALS: Ht 188 cm; Wt 100.0 kg
[~2017-10-24 18:54] MED LIST changes: -CEPH-459 PO; -CHLORHEXIDINE GLUCONATE 2 % 1 PACK (2 CLOTHS) TOPICAL PRN; -DO NOT ADM ANY ANTICOAGULANT DRUGS PRN; -INSULIN HUMAN REGULAR 1,000 UNITS/10 ML VIAL ONE; -INSULIN HUMAN REGULAR 1,000 UNITS/10 ML VIAL SQ PRN; -LACTATED RINGER'S 1000 ML IV PRN; -LIDOCAINE HCL 1% PF 5 ML SYRINGE OTHER ONE; -METOPROLOL TARTRATE 25 MG TAB PO PRN; -ONDANSETRON HCL 4 MG/2 ML VIAL IV ONE; -ONDANSETRON HCL 4 MG/2 ML VIAL IV PUSH PRN; -POVIDONE IODINE 5% (ANTISEPSIS KIT) 4 APPLICATIONS EACH NARE PRN; -PROPOFOL 200 MG/20 ML AMP IV ONE; -SODIUM CHLORID 0.9% 500 ML IV PRN; -ceFAZolin 2 GM PREMIX 50 ML IV SCH; -oxyCODONE/ACETAMINOPHEN 5 MG/325 MG TAB PO PRN
[2017-10-24 18:55] VITALS: BP 150/82; PULSE 109; RESP 20; TEMP 97.3; O2SAT 98
--- NOTE | 2017-10-24 21:35 | PD ---
HPI Chief Complaint: Medical Clearance Time Seen by Provider: 20:41 Travel History International Travel<30 days: No Contact w/Intl Traveler<30days: No Traveled to known affect area: No History of Present Illness HPI 22-year-old male presents to the emergency department with his mother and father for evaluation after suprapubic catheter was pulled out approximately 2 large prior to arrival. The father states he was changing him and accidentally pulled it out. The patient has history of autism and urinary retention. Suprapubic catheter was placed September 22, [address] Durham. He had a 16 Stateless suprapubic catheter placed. History is obtained by parents this patient is unable to provide it. They deny any other medical problems or complaints at this time. No exacerbating or alleviating factors. Moderate severity. PFSH Past Medical History ADHD: Yes Arthritis: No Cancer: No Cardiovascular Problems: No Cerebrovascular Accident: No Developmental Delay: Yes Diabetes: Yes Patient Takes Glucophage: No Diminished Hearing: No Endocrine: Yes Genitourinary: Yes (STRICTURES, INCONTINENCE) Hepatitis: No Immune Disorder: No Musculoskeletal: No Psychiatric: Yes (ADHD) Reproductive: No Respiratory: No Immunizations Current: Yes Migraines: No Seizures: No Thyroid Disease: No Past Surgical History Abdominal Surgery: No Cardiac Surgery: No Ear Surgery: No Endocrine Surgery: No Eye Surgery: No Genitourinary Surgery: Yes (suprapubic cathater, bladder flush) Gynecologic Surgery: No Oral Surgery: No Pacemaker: No Thoracic Surgery: No Other Surgery: Yes (scrotal surgery ) Social History Alcohol Use: No Tobacco Use: No Substance Use: No Allergies-Medications (Allergen,Severity, Reaction): Coded Allergies: No Known Drug Allergies (Verified Allergy, Unknown, 10/24/17) *MDRO Multi-Drug Resistant Organism (Verified Adverse Reaction, Unknown, ) 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 Reported Fenofibrate 48 Mg Tab 48 Mg PO DAILY Levemir Inj (Insulin Detemir) 1,000 unit/ 10 ML Vial 6 Units SQ DAILY Do not mix with any other Insulin. Review of Systems Except as stated in HPI: all other systems reviewed are Neg Physical Exam Exam Limitations: Clinical Condition Narrative GENERAL: Well-nourished, well-developed male patient, afebrile. SKIN: Focused skin assessment warm/dry. HEAD: Normocephalic. Atraumatic. EYES: No scleral icterus. No injection or drainage. NECK: Supple, trachea midline. No JVD or lymphadenopathy. CARDIOVASCULAR: Regular rate and rhythm without murmurs, gallops, or rubs. RESPIRATORY: Breath sounds equal bilaterally. No accessory muscle use. Lungs sounds clear to auscultation. GASTROINTESTINAL: Abdomen soft, non-tender, nondistended. Patient has small opening to suprapubic area where catheter was placed. MUSCULOSKELETAL: No cyanosis, or edema. Data Data Last Documented VS Vital Signs Date Time Temp Pulse Resp B/P (MAP) Pulse Ox O2 Delivery O2 Flow Rate FiO2 10/24/17 18:55 97.3 109 20 150/82 (104) 98 Room Air Orders Orders Urinary Catheter Insert/Apply (10/24/17 21:19) Ed Discharge Order (10/24/17 22:00) MDM Medical Decision Making Medical Screen Exam Complete: Yes Emergency Medical Condition: Yes Medical Record Reviewed: Yes Differential Diagnosis Suprapubic catheter replacement versus urinary retention versus medical clearance Narrative Course 22-year-old male presents to the emergency department after his suprapubic catheter was accidentally pulled out. I attempted to replace the suprapubic catheter as well as my attending physician, Dr. Thomas. We were unable to advance the catheter to be placed. I spoke to Dr. Ashford is on-call for Dr. Durham. He states that the track will close up quite fast as this is a new suprapubic catheter. He recommends Rogers catheter through the penis and follow Dr. Durham the office. I spoke with the parents who agree to this. After multiple attempts to place a Rogers catheter including with a coud catheter, the catheter was unable to be placed. I spoke to Dr. howard again who states that as long as the patient is making urine, he can go home and follow with Dr. Durham Friday. I discussed this with the parents who verbalize agreement. I instructed them on signs, symptoms to return immediately for including no right diapers, pain, bladder distention. They stated they will return if this occurs. The patient was discharged in stable condition with instructions, including return instructions and follow up instructions. Diagnosis Primary Impression: Urinary retention Referrals: Bebeto Durham MD 3 days Patient Instructions: General Instructions, Urinary Retention in Men (ED) Additional Instructions: Follow up with Dr. Durham on Friday. Return to the emergency department for any signs of urinary retention. Med/Other Pt SpecificInfo: No Change to Meds Disposition: 01 DISCHARGE HOME Condition: Stable Kathy Mcghee Oct 24, 2017 21:35
== END 2017-10-24 23:37 | disposition home or self-care (01) ==
LOC: NEPC 18:54
DX: R33.9 Retention of urine, unspecified (principal); F84.0 Autistic disorder; F90.9 Attention-deficit hyperactivity disorder, unspecified type; E11.9 Type 2 diabetes mellitus without complications; Z79.899 Other long term (current) drug therapy; Z79.4 Long term (current) use of insulin
CPT/HCPCS: 99283